=== PATIENT | female | born 2000 | race African-American/Black ===

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

== ENCOUNTER 2019-06-08 11:03 | Inpatient (IN) | payer MEDICAID, OTHER ==
[~2019-06-08] VITALS: Ht 154.9 cm; Wt 57.8 kg
[2019-06-08] MEDS ORDERED: SODIUM CHLORIDE 0.9% 1,000 ML IV ONE (11:12)
[2019-06-08] MEDS ORDERED: ONDANSETRON HCL 4 MG/2 ML VIAL IV ONE (11:15)
[2019-06-08] MEDS ORDERED: InsuLIN R (HUMAN) 100 UNITS in SODIUM CHL 0.9% 99 ML IV SCH ×3 (11:48→16:50)
[2019-06-08] MEDS ORDERED: DEXTROSE (50%) 50ML SYRG IV PRN ×3 (12:00→23:15)
[2019-06-08 12:17] LABS: Urine Bacteria FEW /hpf (None Seen); Urine Blood Negative /uL (Negative); Urine Budding Yeast LOADED /hpf (None Seen); Urine Mucus FEW (None Seen); Urine WBC 51 /hpf (0 - 5)
[2019-06-08] MEDS: ACCU-CHEK COMFORT CURVE STRIP VI SCH ×8 (12:25→22:48)
[2019-06-08] MEDS: SODIUM CHLORIDE 0.9% 1,000 ML IV SCH ×5 (13:48→22:56)
[2019-06-08] MEDS ORDERED: PROMETHAZINE HCL 25 MG/ML 1ML IV ONE (14:00)
[2019-06-08] MEDS ORDERED: MORPHINE SULFATE 4 MG/ML SYR/VIAL IV ONE (14:00)
[2019-06-08 14:31] LABS: Hemoglobin 11.1 g/dL (12.2-16.2); Mean Corpuscular Volume 89.9 fL (80.0-100.0); Platelet Count (auto) 378 10^3/uL (140-450); Red Blood Cells 4.12 10^6/uL (4.0-5.20); Red Cell Distribution Width 16.1 % (11.8-14.3); White Blood Cell 14.2 10^3/uL (4.4-10.8)
[2019-06-08 14:39] LABS: Albumin 3.8 g/dL (3.4-5.0); Calcium 8.6 mg/dL (8.5-10.1); Potassium 4.3 mmol/L (3.5-5.1)
[2019-06-08 14:43] LABS: Magnesium 2.4 mg/dL (1.6-2.6)
[2019-06-08 14:48] LABS: Bilirubin, Total 0.5 mg/dL (0.2-1.0); Total Protein 8.2 g/dL (6.4-8.2)
[2019-06-08 14:53] LABS: Band Neutrophils % (manual) 0; Basophils % (manual) 0 (0.0-2.0); Blast Cells 0; Eosinophils % (manual) 0 (0-7); Metamyelocytes % 0; Myelocytes % 0; Promyelocytes % 0; Reactive Lymphocytes 0
[2019-06-08] MEDS ORDERED: PIPERACILLIN-TAZOB 3.375GM 100 ML IV ONE (15:00)
[2019-06-08 15:28] LABS: Lymphocytes % (manual) 3 (10.0-50.0); Monocytes % (manual) 3 (0-12)
[2019-06-08] MEDS ORDERED: SODIUM CHLORIDE 0.9% 2,000 ML IV ONE (15:30)
[2019-06-08] MEDS ORDERED: SODIUM BICARBONATE 8.4 % INJ 50ML VIAL IV ONE (15:30)
[2019-06-08] MEDS ORDERED: SODIUM CHLORIDE 0.9% 1,000 ML IV SCH ×3 (15:48→20:56)
[2019-06-08] MEDS ORDERED: cefTRIAXone 1GM/50ML D5W 50 ML IV ONE (17:00)
[2019-06-08] MEDS ORDERED: ACETAMINOPHEN 500 MG TAB PO PRN (17:00)
[2019-06-08] MEDS ORDERED: MORPHINE SULF INJ 2 MG/ML SYRINGE 1ML IV PRN (17:00)
[2019-06-08] MEDS ORDERED: NITROGLYCERIN 0.4 MG SL TAB SL PRN (17:00)
[2019-06-08] MEDS: InsuLIN R (HUMAN) 100 UNITS in SODIUM CHL 0.9% 99 ML IV SCH ×2 (17:00→21:19)
[2019-06-08] MEDS: traMADol HCL 50 MG TAB PO PRN (19:38)
[2019-06-08] MEDS ORDERED: INSULIN LANTUS (GLARGINE) 1 /0.01ml (100units/ml) SC SCH (22:00)
[2019-06-08] MEDS: PROMETHAZINE HCL 25 MG/ML 1ML IV PRN (22:55)
[2019-06-08 22:58] LABS: BUN/Creatinine Ratio 13.5; Calcium 6.9 mg/dL (8.5-10.1); Potassium 3.5 mmol/L (3.5-5.1)
[2019-06-09] MEDS: ACCU-CHEK COMFORT CURVE STRIP VI SCH ×5 (00:32→20:11)
[2019-06-09] MEDS: InsuLIN REG 1unit/0.01ml Soln (100units/ml) SC SCH ×6 (00:32→20:23)
[2019-06-09] MEDS: SODIUM CHLORIDE 0.9% 1,000 ML IV SCH (05:27)
[2019-06-09] MEDS ORDERED: INSULIN LANTUS (GLARGINE) 1 /0.01ml (100units/ml) SC SCH (07:00)
[2019-06-09 07:02] LABS: Basophils # (auto) 0.1 uL; Basophils % (auto) 1.1 % (0.0-2.0); Eosinophils # (auto) 0 uL; Eosinophils % (auto) 0.4 % (0.0-7.0); Hematocrit 27.5 % (36.0-46.0); Hemoglobin 9.1 g/dL (12.2-16.2); Lymphocytes # (auto) 2.2 uL; Lymphocytes % (auto) 27.5 % (10.0-50.0); Mean Corpuscular Hemoglobin 27.1 pg (28.0-32.0); Mean Corpuscular Hgb Conc. 33.1 g/dL (32.0-36.0); Mean Corpuscular Volume 81.9 fL (80.0-100.0); Monocytes # (auto) 0.8 uL; Monocytes % (auto) 9.7 % (0.0-12.0); Neutrophils # (auto) 4.9 uL; Neutrophils % (auto) 61.3 % (37.0-80.0); Nucleated Red Blood Cells % 0.1 %; Platelet Count (auto) 313 10^3/uL (140-450); Red Blood Cells 3.35 10^6/uL (4.0-5.20); Red Cell Distribution Width 15.4 % (11.8-14.3)
[2019-06-09 07:21] LABS: Albumin 2.5 g/dL (3.4-5.0); Calcium 6.5 mg/dL (8.5-10.1)
[2019-06-09 07:26] LABS: BUN/Creatinine Ratio 10.3; Bilirubin, Total 0.4 mg/dL (0.2-1.0); Total Protein 5.7 g/dL (6.4-8.2)
[2019-06-09] MEDS ORDERED: POTASSIUM EFFERVESENT TAB 25 MEQ PO ONE ×2 (09:45)
[2019-06-09] MEDS ORDERED: POTASSIUM CHL 20MEQ/100ML 100 ML IV ONE (09:45)
[2019-06-09] MEDS: D5W/SOD CHL 0.45%/KCL 40MEQ 1,000 ML IV SCH ×2 (10:30→19:45)
[2019-06-09] MEDS: cefTRIAXone 1GM/50ML D5W 50 ML IV SCH (11:31)
[2019-06-09] MEDS: PANTOPRAZOLE 40 MG TAB PO SCH (11:34)
[2019-06-09 13:00] VITALS: BP 118/89
[2019-06-09] MEDS: traMADol HCL 50 MG TAB PO PRN (13:34)
[2019-06-09] MEDS: PROMETHAZINE HCL 25 MG/ML 1ML IV PRN (14:08)
[2019-06-09 14:10] LABS: BUN/Creatinine Ratio 5.8; Calcium 6.3 mg/dL (8.5-10.1); Potassium 4.3 mmol/L (3.5-5.1)
[2019-06-09] MEDS ORDERED: GABA300C10 PO (15:08)
[2019-06-09 17:00] VITALS: BP 131/97
[2019-06-09 21:36] VITALS: BP 97/57
[2019-06-09] MEDS: CALCIUM CARB 500 MG CHEW TAB PO SCH (21:45)
[2019-06-09] MEDS: INSULIN LANTUS (GLARGINE) 1 /0.01ml (100units/ml) SC SCH (22:00)
[2019-06-10] MEDS: InsuLIN REG 1unit/0.01ml Soln (100units/ml) SC SCH ×5 (00:29→17:10)
[2019-06-10] MEDS: ACCU-CHEK COMFORT CURVE STRIP VI SCH ×5 (00:29→16:54)
[2019-06-10] MEDS: D5W/SOD CHL 0.45%/KCL 40MEQ 1,000 ML IV SCH ×2 (04:26→15:38)
[2019-06-10 04:50] VITALS: BP 90/52
[2019-06-10] MEDS ORDERED: DEXTROSE (50%) 50ML SYRG IV PRN (06:30)
[2019-06-10] MEDS: INSULIN LANTUS (GLARGINE) 1 /0.01ml (100units/ml) SC SCH (06:45)
[2019-06-10 08:00] VITALS: BP 102/75
[2019-06-10] MEDS: cefTRIAXone 1GM/50ML D5W 50 ML IV SCH (09:25)
[2019-06-10] MEDS: CALCIUM CARB 500 MG CHEW TAB PO SCH (09:26)
[2019-06-10] MEDS: PANTOPRAZOLE 40 MG TAB PO SCH (09:26)
[2019-06-10 12:00] VITALS: BP 118/93
[2019-06-10 12:32] LABS: Basophils # (auto) 0 uL; Basophils % (auto) 1.3 % (0.0-2.0); Eosinophils # (auto) 0 uL; Hematocrit 31.7 % (36.0-46.0); Hemoglobin 10.5 g/dL (12.2-16.2); Lymphocytes # (auto) 1.5 uL; Lymphocytes % (auto) 44.8 % (10.0-50.0); Mean Corpuscular Hemoglobin 27.2 pg (28.0-32.0); Mean Corpuscular Volume 82.3 fL (80.0-100.0); Monocytes # (auto) 0.3 uL; Neutrophils # (auto) 1.5 uL; Neutrophils % (auto) 43.9 % (37.0-80.0); Nucleated Red Blood Cells % 0.1 %; Platelet Count (auto) 327 10^3/uL (140-450); Red Blood Cells 3.85 10^6/uL (4.0-5.20); Red Cell Distribution Width 15.9 % (11.8-14.3); White Blood Cell 3.3 10^3/uL (4.4-10.8)
[2019-06-10 12:43] LABS: BUN/Creatinine Ratio 3.7; Calcium 8.4 mg/dL (8.5-10.1); Potassium 4.7 mmol/L (3.5-5.1)
[2019-06-10] MEDS: traMADol HCL 50 MG TAB PO PRN (15:47)
[2019-06-10 16:50] VITALS: BP 156/105
[2019-06-10 18:10] VITALS: BP 118/80
[2019-06-10] MEDS ORDERED: InsuLIN REG 1unit/0.01ml Soln (100units/ml) SC SCH (22:00)
== END 2019-06-10 19:19 | disposition home or self-care (01) | DRG 720 ==
LOC: ER 11:03 → TELE 11:04 → TELE-WESTW 06-09 14:14
PROVIDERS: ADMIT Internal Medicine; ATTEND Internal Medicine
PROC: 05H933Z Insertion of Infusion Device into Right Brachial Vein, Percutaneous Approach (ICD-10-PCS; principal; 2019-06-08)
PROC: B34HZZZ Ultrasonography of Right Upper Extremity Arteries (ICD-10-PCS; 2019-06-08)
DX: A41.9 Sepsis, unspecified organism (principal); E10.10 Type 1 diabetes mellitus with ketoacidosis without coma; E87.6 Hypokalemia; N39.0 Urinary tract infection, site not specified; Z82.49 Family history of ischemic heart disease and other diseases of the circulatory system; Z79.4 Long term (current) use of insulin; Z91.19 Patient's noncompliance with other medical treatment and regimen
CPT/HCPCS: 36415; 36600; 71045; 80048; 80053; 81001; 82010; 82150; 82805; 82962; 83036; 83605; 83690; 83735; 83930; 84100; 85007; 85025; 85027; 87040; 87086; 96365; 96366; 96368; 96375; G0378; J0696; J1815; J2405; J2543

== ENCOUNTER 2020-02-06 18:13 | Inpatient (IN) | payer MEDICAID ==
[~2020-02-06] VITALS: Ht 154.9 cm; Wt 54.4 kg
[~2020-02-06 18:13] MED LIST changes: +GABA300C10 PO
[2020-02-06 19:54] LABS: Basophils # (auto) 0 10 ^3/uL (0-0.2); Basophils % (auto) 0.4 % (0.0-2.0); Eosinophils # (auto) 0.1 10 ^3/uL (0-0.8); Eosinophils % (auto) 0.7 % (0.0-7.0); Hematocrit 27.9 % (36.0-46.0); Hemoglobin 8.9 g/dL (12.2-16.2); Lymphocytes # (auto) 1.2 10 ^3/uL (0.4-5.4); Lymphocytes % (auto) 10.2 % (10.0-50.0); Mean Corpuscular Hemoglobin 25.8 pg (28.0-32.0); Mean Corpuscular Volume 80.6 fL (80.0-100.0); Monocytes # (auto) 0.9 10 ^3/uL (0-1.3); Monocytes % (auto) 7.3 % (0.0-12.0); Neutrophils # (auto) 9.9 10 ^3/uL (1.6-8.6); Neutrophils % (auto) 81.4 % (37.0-80.0); Platelet Count (auto) 690 10^3/uL (140-450); Red Blood Cells 3.46 10^6/uL (4.0-5.20); Red Cell Distribution Width 19.8 % (11.8-14.3); White Blood Cell 12.2 10^3/uL (4.4-10.8)
[2020-02-06 20:08] LABS: Potassium 3.8 mmol/L (3.5-5.1)
[2020-02-06 20:11] LABS: Amylase 72 U/L (25-115); Lipase 37 U/L (73-393)
[2020-02-06 20:14] LABS: Albumin 3.3 g/dL (3.4-5.0); BUN/Creatinine Ratio 12.9; Bilirubin, Total 0.5 mg/dL (0.2-1.0); Calcium 10.1 mg/dL (8.5-10.1); Total Protein 10.3 g/dL (6.4-8.2)
[2020-02-06] MEDS ORDERED: SODIUM CHLORIDE 0.9% 1,000 ML IV ONE ×2 (20:15→21:30)
[2020-02-06] MEDS ORDERED: ACETAMINOPHEN 500 MG TAB PO ONE (21:30)
[2020-02-06] MEDS ORDERED: SODIUM BICARBONATE 50ML VIAL 50 ML in SOD CHL 0.45% 1,000 ML IV ONE (21:45)
[2020-02-06] MEDS ORDERED: NITROGLYCERIN 0.4 MG SL TAB SL PRN (22:30)
[2020-02-06] MEDS ORDERED: TEMAZEPAM 15 MG CAP PO PRN (22:30)
[2020-02-06] MEDS ORDERED: MORPHINE SULF INJ 2 MG/ML SYRINGE 1ML IV PRN (22:30)
[2020-02-06] MEDS ORDERED: ONDANSETRON HCL 4 MG/2 ML VIAL IV PRN (22:30)
[2020-02-06] MEDS ORDERED: DEXTROSE (50%) 50ML SYRG IV PRN (22:30)
[2020-02-06] MEDS: ACCU-CHEK COMFORT CURVE STRIP VI SCH (22:39)
[2020-02-06] MEDS: InsuLIN R (HUMAN) 100 UNITS in SODIUM CHL 0.9% 99 ML IV SCH (23:20)
[2020-02-07] MEDS: ACCU-CHEK COMFORT CURVE STRIP VI SCH ×8 (00:02→21:33)
[2020-02-07] MEDS: InsuLIN R (HUMAN) 100 UNITS in SODIUM CHL 0.9% 99 ML IV SCH ×2 (01:32→04:30)
[2020-02-07 02:08] LABS: Anion Gap 17 (5-15); Blood Urea Nitrogen 17 mg/dL (7-18); Calcium 8.5 mg/dL (8.5-10.1); Carbon Dioxide 15 mmol/L (21-32); Chloride 102 mmol/L (98-107); GFR African American 72 mL/min; GFR Non-African American 60 mL/min; Glucose 248 mg/dL (74-106); Potassium 3.8 mmol/L (3.5-5.1); Sodium 134 mmol/L (136-145)
[2020-02-07] MEDS ORDERED: HYDROcodone-ACET 5/325MG TAB PO ONE (02:15)
[2020-02-07] MEDS ORDERED: SODIUM CHLORIDE 0.9% 1,000 ML IV SCH ×2 (02:17→04:17)
[2020-02-07 03:01] LABS: Urine Bacteria MANY /hpf (None Seen); Urine Blood 1+ /uL (Negative); Urine Specific Gravity 1.016 (1.001-1.035); Urine WBC 1125 /hpf (0 - 5); Urine WBC Clumps PRESENT /hpf (None Seen)
[2020-02-07 04:29] VITALS: BP 93/54
[2020-02-07 04:51] VITALS: BP 97/57
[2020-02-07] MEDS ORDERED: cefTRIAXone 1GM/50ML D5W 50 ML IV ONE ×2 (06:00→14:15)
[2020-02-07 07:23] LABS: Basophils # (auto) 0 10 ^3/uL (0-0.2); Eosinophils # (auto) 0.1 10 ^3/uL (0-0.8); Neutrophils # (auto) 6.4 10 ^3/uL (1.6-8.6); White Blood Cell 9.4 10^3/uL (4.4-10.8)
[2020-02-07 07:26] LABS: Basophils % (auto) 0.2 % (0.0-2.0); Eosinophils % (auto) 1.4 % (0.0-7.0); Hematocrit 26.2 % (36.0-46.0); Hemoglobin 8.5 g/dL (12.2-16.2); Lymphocytes # (auto) 1.7 10 ^3/uL (0.4-5.4); Lymphocytes % (auto) 18.4 % (10.0-50.0); Mean Corpuscular Hemoglobin 26.1 pg (28.0-32.0); Mean Corpuscular Hgb Conc. 32.5 g/dL (32.0-36.0); Mean Corpuscular Volume 80.2 fL (80.0-100.0); Monocytes # (auto) 1.1 10 ^3/uL (0-1.3); Monocytes % (auto) 11.7 % (0.0-12.0); Neutrophils % (auto) 68.3 % (37.0-80.0); Platelet Count (auto) 593 10^3/uL (140-450); Red Blood Cells 3.27 10^6/uL (4.0-5.20); Red Cell Distribution Width 19.8 % (11.8-14.3)
[2020-02-07] MEDS ORDERED: MORPHINE SULF INJ 2 MG/ML SYRINGE 1ML IV PRN (07:30)
[2020-02-07 07:37] LABS: BUN/Creatinine Ratio 13.6; Calcium 8.6 mg/dL (8.5-10.1); Potassium 3.5 mmol/L (3.5-5.1)
[2020-02-07] MEDS ORDERED: HYDROcodone-ACET 5/325MG TAB PO PRN (08:15)
[2020-02-07] MEDS ORDERED: FERR27TA2 PO (10:23)
[2020-02-07] MEDS ORDERED: ACYC-161 PO (10:23)
[2020-02-07] MEDS ORDERED: INSU100I33 SC (10:23)
[2020-02-07] MEDS ORDERED: CHOL20007 PO (10:23)
[2020-02-07] MEDS ORDERED: SODIUM CHLORIDE 0.9% 1,000 ML IV ONE (11:45)
[2020-02-07] MEDS: FAMOTIDINE 20 MG TAB PO SCH ×2 (11:54→21:40)
[2020-02-07] MEDS ORDERED: ACCU-CHEK COMFORT CURVE STRIP VI SCH ×2 (12:00→14:00)
[2020-02-07] MEDS ORDERED: DEXTROSE (50%) 50ML SYRG IV PRN ×2 (12:00→12:15)
[2020-02-07 13:00] VITALS: BP 114/71
[2020-02-07] MEDS: InsuLIN REG 1unit/0.01ml Soln (100units/ml) SC SCH ×2 (13:01→16:42)
[2020-02-07] MEDS: HYDROcodone-ACET 5/325MG TAB PO PRN ×2 (13:15→20:12)
[2020-02-07] MEDS ORDERED: ACCU-CHEK COMFORT CURVE STRIP VI ONE (13:15)
[2020-02-07 13:20] LABS: BUN/Creatinine Ratio 11.1; Calcium 8.7 mg/dL (8.5-10.1); Potassium 4.2 mmol/L (3.5-5.1)
[2020-02-07] MEDS ORDERED: INSULIN LISPRO (HUMAN) 100 UNITS/ML ML SC ONE (14:15)
[2020-02-07] MEDS: SODIUM CHLORIDE 0.9% 1,000 ML IV SCH ×2 (16:23→21:13)
[2020-02-07] MEDS: INSULIN LISPRO (HUMAN) 100 UNITS/ML ML SC SCH (16:42)
[2020-02-07] MEDS ORDERED: InsuLIN REG 1unit/0.01ml Soln (100units/ml) SC SCH ×2 (17:00→22:00)
[2020-02-07 17:53] VITALS: BP 114/67
[2020-02-07 21:34] LABS: BUN/Creatinine Ratio 11.7; Calcium 8.8 mg/dL (8.5-10.1); Phosphorus 1.8 mg/dL (2.5-4.90); Potassium 3.7 mmol/L (3.5-5.1)
[2020-02-07 22:00] VITALS: BP 132/89
[2020-02-07] MEDS ORDERED: INSULIN LANTUS (GLARGINE) 1 /0.01ml (100units/ml) SC SCH (22:00)
[2020-02-08] MEDS: ACCU-CHEK COMFORT CURVE STRIP VI SCH ×5 (00:54→15:54)
[2020-02-08] MEDS: SODIUM CHLORIDE 0.9% 1,000 ML IV SCH ×3 (03:57→18:33)
[2020-02-08 05:00] VITALS: BP 110/69
[2020-02-08 05:57] LABS: Basophils # (auto) 0.1 10 ^3/uL (0-0.2); Eosinophils # (auto) 0.1 10 ^3/uL (0-0.8); Mean Corpuscular Volume 81.2 fL (80.0-100.0); Monocytes # (auto) 0.9 10 ^3/uL (0-1.3); Platelet Count (auto) 540 10^3/uL (140-450)
[2020-02-08 06:01] LABS: Eosinophils % (auto) 1.5 % (0.0-7.0); Hematocrit 25.2 % (36.0-46.0); Hemoglobin 8.1 g/dL (12.2-16.2); Lymphocytes # (auto) 1.6 10 ^3/uL (0.4-5.4); Lymphocytes % (auto) 16.2 % (10.0-50.0); Mean Corpuscular Hgb Conc. 32.1 g/dL (32.0-36.0); Monocytes % (auto) 9.5 % (0.0-12.0); Neutrophils % (auto) 71.8 % (37.0-80.0); White Blood Cell 9.8 10^3/uL (4.4-10.8)
[2020-02-08 06:08] LABS: Red Cell Distribution Width 20.2 % (11.8-14.3)
[2020-02-08 06:23] LABS: Albumin 2.2 g/dL (3.4-5.0); Calcium 8.5 mg/dL (8.5-10.1); Magnesium 2.1 mg/dL (1.6-2.6); Potassium 3.9 mmol/L (3.5-5.1)
[2020-02-08 06:27] LABS: BUN/Creatinine Ratio 11.2; Bilirubin, Total 0.3 mg/dL (0.2-1.0); Phosphorus 1.9 mg/dL (2.5-4.90); Total Protein 7.6 g/dL (6.4-8.2)
[2020-02-08] MEDS: InsuLIN REG 1unit/0.01ml Soln (100units/ml) SC SCH ×4 (06:27→15:52)
[2020-02-08] MEDS: INSULIN LISPRO (HUMAN) 100 UNITS/ML ML SC SCH (06:27)
[2020-02-08 09:00] VITALS: BP 104/60
[2020-02-08] MEDS ORDERED: cefTRIAXone 1GM/50ML D5W 50 ML IV SCH (09:00)
[2020-02-08] MEDS ORDERED: INSULIN LISPRO (HUMAN) 100 UNITS/ML ML SC ONE (09:15)
[2020-02-08] MEDS: FAMOTIDINE 20 MG TAB PO SCH (09:17)
[2020-02-08] MEDS: HYDROcodone-ACET 5/325MG TAB PO PRN (12:15)
[2020-02-08 13:00] VITALS: BP 94/60
[2020-02-08 14:29] VITALS: BP 115/72
[2020-02-08 17:00] VITALS: BP 108/67
[2020-02-08 19:31] VITALS: BP 108/67
== END 2020-02-08 20:28 | disposition home or self-care (01) | DRG 720 ==
LOC: ER 18:13 → TELE 18:14 → TELE-WESTW 02-07 09:29
PROVIDERS: ADMIT Nurse Practitioner; ATTEND Internal Medicine
DX: A41.9 Sepsis, unspecified organism (principal); E10.10 Type 1 diabetes mellitus with ketoacidosis without coma; F32.9 Major depressive disorder, single episode, unspecified; G89.4 Chronic pain syndrome; Z91.19 Patient's noncompliance with other medical treatment and regimen; Z82.49 Family history of ischemic heart disease and other diseases of the circulatory system; Z83.3 Family history of diabetes mellitus; N39.0 Urinary tract infection, site not specified
CPT/HCPCS: 36415; 36600; 70450; 72125; 80048; 80053; 81001; 81025; 82010; 82150; 82805; 82962; 83036; 83690; 83735; 83930; 84100; 84443; 84702; 85025; 96361; 96365; 96375; G0378; J0696; J1815

== ENCOUNTER 2020-06-23 11:52 | Inpatient (IN) | payer MEDICAID, OTHER ==
[~2020-06-23] VITALS: Ht 154.9 cm; Wt 52.3 kg
[~2020-06-23 11:52] MED LIST changes: +ACYC-161 PO; +CHOL20007 PO; +FERR27TA2 PO; +INSU100I33 SC
[2020-06-23 12:37] LABS: Urine Bacteria MANY /hpf (None Seen); Urine Blood 3+ /uL (Negative); Urine Budding Yeast OCCASIONAL /hpf (None Seen); Urine Mucus FEW (None Seen); Urine Specific Gravity 1.019 (1.001-1.035); Urine WBC 705 /hpf (0 - 5); Urine WBC Clumps PRESENT /hpf (None Seen)
[2020-06-23 12:44] LABS: Basophils # (auto) 0 10 ^3/uL (0-0.2); Basophils % (auto) 0.8 % (0.0-2.0); Eosinophils # (auto) 0.1 10 ^3/uL (0-0.8); Eosinophils % (auto) 1.9 % (0.0-7.0); Hemoglobin 10.8 g/dL (12.2-16.2); Lymphocytes # (auto) 1.7 10 ^3/uL (0.4-5.4); Nucleated Red Blood Cells % 0.1 %; Red Cell Distribution Width 16.3 % (11.8-14.3)
[2020-06-23 12:46] LABS: Hematocrit 32.8 % (36.0-46.0); Lymphocytes % (auto) 28.5 % (10.0-50.0); Mean Corpuscular Hemoglobin 26.7 pg (28.0-32.0); Mean Corpuscular Hgb Conc. 32.8 g/dL (32.0-36.0); Mean Corpuscular Volume 81.3 fL (80.0-100.0); Monocytes # (auto) 0.5 10 ^3/uL (0-1.3); Monocytes % (auto) 8.1 % (0.0-12.0); Neutrophils # (auto) 3.6 10 ^3/uL (1.6-8.6); Neutrophils % (auto) 60.7 % (37.0-80.0); Red Blood Cells 4.04 10^6/uL (4.0-5.20); White Blood Cell 5.9 10^3/uL (4.4-10.8)
[2020-06-23 13:02] LABS: Albumin 3.3 g/dL (3.4-5.0); Calcium 9.3 mg/dL (8.5-10.1)
[2020-06-23 13:04] LABS: Platelet Count (auto) 632 10^3/uL (140-450)
[2020-06-23 13:11] LABS: BUN/Creatinine Ratio 11.5; Bilirubin, Total 0.3 mg/dL (0.2-1.0); Total Protein 9.7 g/dL (6.4-8.2)
[2020-06-23] MEDS ORDERED: SODIUM CHLORIDE 0.9% 1,000 ML IVB ONE (13:40)
[2020-06-23] MEDS ORDERED: cefTRIAXone 1GM/50ML D5W 50 ML IV ONE (13:45)
[2020-06-23] MEDS ORDERED: ACETAMINOPHEN 325 MG TAB PO PRN (14:45)
[2020-06-23] MEDS ORDERED: DOCUSATE SOD 100 MG CAP PO PRN (14:45)
[2020-06-23] MEDS ORDERED: DEXTROSE (50%) 50ML SYRG IV PRN (14:45)
[2020-06-23] MEDS ORDERED: SODIUM CHLORIDE 0.9% 1,000 ML IV ONE (14:45)
[2020-06-23] MEDS ORDERED: LACTATED RINGER'S 1,000 ML IV ONE (14:45)
[2020-06-23] MEDS ORDERED: LORazepam 0.5 MG TAB PO PRN (14:45)
[2020-06-23] MEDS ORDERED: MORPHINE SULF INJ 2 MG/ML SYRINGE 1ML IV PRN (14:45)
[2020-06-23] MEDS ORDERED: NITROGLYCERIN 0.4 MG SL TAB SL PRN (14:45)
[2020-06-23] MEDS ORDERED: HYDROcodone-ACET 5/325MG TAB PO PRN (14:45)
[2020-06-23] MEDS ORDERED: METOCLOPRAMIDE HCL 5MG/ml INJ 2ml VIAL IV PRN (14:45)
[2020-06-23] MEDS ORDERED: ALUM & MAG HYDROX-SIMETH LIQ(MAALOX) 30 ML PO PRN (14:45)
[2020-06-23] MEDS ORDERED: INSULIN LANTUS (GLARGINE) 1 /0.01ml (100units/ml) SC ONE (14:45)
[2020-06-23 15:21] LABS: Cholesterol 134 mg/dL (< 200); HDL Cholesterol 31 mg/dL (40-59); LDL Cholesterol 81 mg/dL (< 100); Magnesium 2.6 mg/dL (1.6-2.6); Triglycerides 357 mg/dL (< 150)
[2020-06-23 15:28] LABS: Amphetamine Screen, Urine NEGATIVE (NEGATIVE); Barbiturate Scree,Urine NEGATIVE (NEGATIVE); Benzodiazephine Screen, Urine NEGATIVE (NEGATIVE); Cannabinoid Screen, Urine NEGATIVE (NEGATIVE); Cocaine Screen, Urine NEGATIVE (NEGATIVE); Opiate Scree,Urine NEGATIVE (NEGATIVE); Phencyclidine Screen, Urine NEGATIVE (NEGATIVE)
[2020-06-23] MEDS: SODIUM CHLORIDE 0.9% 1,000 ML IV SCH ×2 (15:42→23:13)
[2020-06-23] MEDS: InsuLIN REG 1unit/0.01ml Soln (100units/ml) SC SCH ×2 (17:36→23:12)
[2020-06-23] MEDS: ACCU-CHEK COMFORT CURVE STRIP VI SCH ×2 (17:36→23:12)
[2020-06-23] MEDS: FERROUS SULFATE 325 MG TAB PO SCH (17:40)
[2020-06-23] MEDS ORDERED: FAMOTIDINE 20 MG TAB PO ONE (17:45)
[2020-06-23] MEDS ORDERED: ACYC1CAP23 PO (19:11)
[2020-06-23] MEDS: GABAPENTIN 300 MG CAP PO SCH (21:21)
[2020-06-23] MEDS: MORPHINE SULF INJ 2 MG/ML SYRINGE 1ML IV PRN (21:25)
[2020-06-23] MEDS ORDERED: INSULIN LANTUS (GLARGINE) 1 /0.01ml (100units/ml) SC SCH (22:00)
[2020-06-23 22:01] VITALS: BP 120/80
[2020-06-24] MEDS: MORPHINE SULF INJ 2 MG/ML SYRINGE 1ML IV PRN ×5 (01:32→19:38)
[2020-06-24] MEDS ORDERED: DEXTROSE (50%) 50ML SYRG IV PRN (03:15)
[2020-06-24] MEDS: ACCU-CHEK COMFORT CURVE STRIP VI SCH ×5 (04:21→20:09)
[2020-06-24] MEDS: InsuLIN REG 1unit/0.01ml Soln (100units/ml) SC SCH ×5 (04:29→20:11)
[2020-06-24 05:00] VITALS: BP 92/80
[2020-06-24] MEDS: GABAPENTIN 300 MG CAP PO SCH ×4 (05:39→21:54)
[2020-06-24 05:42] VITALS: BP 115/81
[2020-06-24 08:00] VITALS: BP 132/94
[2020-06-24] MEDS: FERROUS SULFATE 325 MG TAB PO SCH ×3 (08:19→18:43)
[2020-06-24] MEDS ORDERED: cefTRIAXone 1GM/50ML D5W 50 ML IV SCH (09:00)
[2020-06-24] MEDS: ENOXAPARIN SOD 40 MG/0.4 ML SYRINGE SC SCH (09:49)
[2020-06-24] MEDS ORDERED: FAMOTIDINE 20 MG TAB PO SCH (10:00)
[2020-06-24] MEDS: SODIUM CHLORIDE 0.9% 1,000 ML IV SCH ×2 (11:48→20:45)
[2020-06-24 12:50] VITALS: BP 144/104
[2020-06-24 17:00] VITALS: BP 136/90
[2020-06-24 22:00] VITALS: BP 113/69
[2020-06-25] MEDS: InsuLIN REG 1unit/0.01ml Soln (100units/ml) SC SCH ×4 (04:00→11:37)
[2020-06-25] MEDS: ACCU-CHEK COMFORT CURVE STRIP VI SCH ×4 (04:00→11:37)
[2020-06-25] MEDS: MORPHINE SULF INJ 2 MG/ML SYRINGE 1ML IV PRN (04:51)
[2020-06-25 05:00] VITALS: BP 108/68
[2020-06-25] MEDS: GABAPENTIN 300 MG CAP PO SCH ×2 (06:00→13:38)
[2020-06-25 06:24] LABS: Basophils # (auto) 0.1 10 ^3/uL (0-0.2); Basophils % (auto) 0.8 % (0.0-2.0); Eosinophils # (auto) 0.2 10 ^3/uL (0-0.8); Eosinophils % (auto) 2.5 % (0.0-7.0); Hematocrit 26.3 % (36.0-46.0); Hemoglobin 8.7 g/dL (12.2-16.2); Lymphocytes % (auto) 28.6 % (10.0-50.0); Mean Corpuscular Hemoglobin 26.8 pg (28.0-32.0); Mean Corpuscular Volume 81.1 fL (80.0-100.0); Monocytes # (auto) 0.5 10 ^3/uL (0-1.3); Monocytes % (auto) 7.3 % (0.0-12.0); Neutrophils # (auto) 4.3 10 ^3/uL (1.6-8.6); Neutrophils % (auto) 60.8 % (37.0-80.0); Nucleated Red Blood Cells % 0.2 %; Platelet Count (auto) 550 10^3/uL (140-450); Red Blood Cells 3.24 10^6/uL (4.0-5.20); Red Cell Distribution Width 16.5 % (11.8-14.3); White Blood Cell 7.1 10^3/uL (4.4-10.8)
[2020-06-25 06:37] LABS: BUN/Creatinine Ratio 9.2; Calcium 8.5 mg/dL (8.5-10.1); Potassium 3.8 mmol/L (3.5-5.1)
[2020-06-25 08:00] VITALS: BP 139/98
[2020-06-25] MEDS: FERROUS SULFATE 325 MG TAB PO SCH ×2 (08:43→13:38)
[2020-06-25 09:00] VITALS: BP 138/94
[2020-06-25] MEDS ORDERED: INSULIN LANTUS (GLARGINE) 1 /0.01ml (100units/ml) SC SCH (10:00)
[2020-06-25] MEDS: ENOXAPARIN SOD 40 MG/0.4 ML SYRINGE SC SCH (10:00)
[2020-06-25] MEDS ORDERED: FAMOTIDINE 20 MG TAB PO SCH (10:43)
[2020-06-25] MEDS ORDERED: CEPH-37 PO (12:17)
[2020-06-25 13:00] VITALS: BP 145/100
== END 2020-06-25 18:10 | disposition home or self-care (01) | DRG 420 ==
LOC: ER 11:52 → TELE 11:53 → TELE-WESTW 20:52
PROVIDERS: ADMIT Hospitalist; ATTEND Internal Medicine Pulmonary Disease
DX: E10.65 Type 1 diabetes mellitus with hyperglycemia (principal); N39.0 Urinary tract infection, site not specified; F41.9 Anxiety disorder, unspecified; M54.9 Dorsalgia, unspecified; F32.9 Major depressive disorder, single episode, unspecified; E87.1 Hypo-osmolality and hyponatremia; E10.40 Type 1 diabetes mellitus with diabetic neuropathy, unspecified; B96.20 Unspecified Escherichia coli [E. coli] as the cause of diseases classified elsewhere; E10.649 Type 1 diabetes mellitus with hypoglycemia without coma; E78.5 Hyperlipidemia, unspecified; Z82.49 Family history of ischemic heart disease and other diseases of the circulatory system; Z83.3 Family history of diabetes mellitus; Z96.41 Presence of insulin pump (external) (internal); Z79.899 Other long term (current) drug therapy
CPT/HCPCS: 36415; 80048; 80053; 80061; 80307; 81001; 81025; 82962; 83036; 83690; 83735; 83930; 84484; 85025; 87040; 87086; 87088; 87186; G0378; J0696; J1815

== ENCOUNTER 2020-09-01 05:13 | Inpatient (IN) | payer MEDICAID ==
[~2020-09-01] VITALS: Ht 154.9 cm; Wt 53.9 kg
[~2020-09-01 05:13] MED LIST changes: -ACYC-161 PO; +CEPH-37 PO; -CHOL20007 PO; -FERR27TA2 PO; -GABA300C10 PO; -INSU100I33 SC; -SERT-274 PO
[2020-09-01] MEDS ORDERED: SODIUM CHLORIDE 0.9% 2,000 ML IV ONE (05:30)
[2020-09-01] MEDS ORDERED: InsuLIN REG 1unit/0.01ml Soln (100units/ml) IV ONE (05:30)
[2020-09-01] MEDS ORDERED: SODIUM CHLORIDE 0.9% 1,000 ML IV ONE ×2 (07:15)
[2020-09-01 07:40] LABS: Urine Bacteria FEW /hpf (None Seen); Urine Blood 2+ /uL (Negative); Urine Hyaline Cast FEW /lpf (0 - 2); Urine Specific Gravity 1.017 (1.001-1.035); Urine WBC 54 /hpf (0 - 5)
[2020-09-01] MEDS ORDERED: ONDANSETRON HCL 4 MG/2 ML VIAL IV ONE (08:00)
[2020-09-01] MEDS ORDERED: MORPHINE SULFATE 4 MG/ML SYR/VIAL IV ONE (08:00)
[2020-09-01 08:21] LABS: Potassium 3.5 mmol/L (3.5-5.1)
[2020-09-01 08:28] LABS: Basophils # (auto) 0 10 ^3/uL (0-0.2); Basophils % (auto) 0.3 % (0.0-2.0); Eosinophils # (auto) 0 10 ^3/uL (0-0.8); Hematocrit 31.1 % (36.0-46.0); Hemoglobin 10.4 g/dL (12.2-16.2); Lymphocytes # (auto) 1.3 10 ^3/uL (0.4-5.4); Lymphocytes % (auto) 9.8 % (10.0-50.0); Mean Corpuscular Hemoglobin 28.7 pg (28.0-32.0); Mean Corpuscular Hgb Conc. 33.4 g/dL (32.0-36.0); Monocytes # (auto) 0.6 10 ^3/uL (0-1.3); Monocytes % (auto) 4.4 % (0.0-12.0); Neutrophils # (auto) 11.1 10 ^3/uL (1.6-8.6); Neutrophils % (auto) 85.5 % (37.0-80.0); Platelet Count (auto) 388 10^3/uL (140-450); Red Blood Cells 3.61 10^6/uL (4.0-5.20); Red Cell Distribution Width 14.4 % (11.8-14.3)
[2020-09-01 08:33] LABS: Albumin 3.9 g/dL (3.4-5.0); BUN/Creatinine Ratio 15.3; Bilirubin, Total 0.6 mg/dL (0.2-1.0); Calcium 9.4 mg/dL (8.5-10.1); Total Protein 8.9 g/dL (6.4-8.2)
[2020-09-01] MEDS ORDERED: INSULIN LANTUS (GLARGINE) 1 /0.01ml (100units/ml) SC ONE (09:30)
[2020-09-01] MEDS ORDERED: DEXTROSE (50%) 50ML SYRG IV PRN ×3 (09:30→20:00)
[2020-09-01] MEDS ORDERED: InsuLIN R (HUMAN) 100 UNITS in SODIUM CHL 0.9% 99 ML IV SCH ×2 (09:30→11:15)
[2020-09-01] MEDS: SODIUM CHLORIDE 0.9% 1,000 ML IV SCH ×2 (09:49→11:30)
[2020-09-01] MEDS: ACCU-CHEK COMFORT CURVE STRIP VI SCH ×7 (10:05→20:01)
[2020-09-01] MEDS ORDERED: ACETAMINOPHEN 500 MG TAB PO PRN (11:15)
[2020-09-01] MEDS: cefTRIAXone 1GM/50ML D5W 50 ML IV SCH (11:28)
[2020-09-01] MEDS: ONDANSETRON HCL 4 MG/2 ML VIAL IV PRN ×3 (11:38→21:24)
[2020-09-01] MEDS: MORPHINE SULF INJ 2 MG/ML SYRINGE 1ML IV PRN ×3 (11:39→19:37)
[2020-09-01] MEDS ORDERED: BIOT5TAB3 PO (11:57)
[2020-09-01] MEDS ORDERED: OMEG306C OR (11:57)
[2020-09-01] MEDS ORDERED: FERR-7 PO (12:01)
[2020-09-01] MEDS ORDERED: LISI-275 PO (12:01)
[2020-09-01 13:11] LABS: Magnesium 3.2 mg/dL (1.6-2.6); Phosphorus 4.3 mg/dL (2.5-4.90)
[2020-09-01] MEDS ORDERED: SODIUM CHLORIDE 0.9% 1,000 ML IV SCH ×3 (13:30→17:15)
[2020-09-01] MEDS ORDERED: D5W/SOD CHL 0.45% 1,000 ML IV SCH (17:00)
[2020-09-01] MEDS ORDERED: MORPHINE SULF INJ 2 MG/ML SYRINGE 1ML IV ONE (17:15)
[2020-09-01] MEDS ORDERED: PROMETHAZINE HCL 25 MG/ML 1ML IV ONE ×2 (17:30→23:30)
[2020-09-01 19:15] LABS: Calcium 7.5 mg/dL (8.5-10.1); Potassium 3.2 mmol/L (3.5-5.1)
[2020-09-01 19:16] LABS: BUN/Creatinine Ratio 12.8
[2020-09-01] MEDS: InsuLIN REG 1unit/0.01ml Soln (100units/ml) SC SCH (20:00)
[2020-09-01] MEDS: SOD CHL 0.45% WITH 20MEQ KCL 1,000 ML IV SCH (21:47)
[2020-09-02] VITALS (9 sets, daily range): BP systolic 117–173; BP diastolic 71–115
--- NOTE | 2020-09-02 00:07 | NUR ---
Report Received from Nidia ALVAREZ in ER.
--- NOTE | 2020-09-02 00:20 | NUR ---
Patient Brought to Unit Via Bed from ER Patient is AOx4 and presenting with nausea and weakness upon admit to Tele. Patient has no s/s of acute distress or SOB. Tele Box #34 and sinus tach at 104-110. POC discussed with patient and patient agreed to verbally understanding. Patient bed locked in lowest position and HOB is at 45 degrees. Patient told to use call light PRN and told to call if ambulation to bathroom is needed for safety precautions due to weakness and fatigue. Blood glucose was checked and is currently 91. Will continue to monitor.
[2020-09-02] MEDS: ACCU-CHEK COMFORT CURVE STRIP VI SCH ×5 (00:30→17:57)
[2020-09-02] MEDS: InsuLIN REG 1unit/0.01ml Soln (100units/ml) SC SCH ×5 (00:30→17:56)
[2020-09-02] MEDS: MORPHINE SULF INJ 2 MG/ML SYRINGE 1ML IV PRN ×4 (02:01→22:07)
--- NOTE | 2020-09-02 02:06 | NUR ---
Pain Patient complains of pain and nausea. Patient anti-nausea medication not due. Patient request pain medication and has been given pain medication PRN as ordered. Will continue to monitor.
[2020-09-02] MEDS: ONDANSETRON HCL 4 MG/2 ML VIAL IV PRN (03:50)
[2020-09-02] MEDS: SOD CHL 0.45% WITH 20MEQ KCL 1,000 ML IV SCH ×2 (05:35→17:56)
[2020-09-02 06:54] LABS: Basophils # (auto) 0 10 ^3/uL (0-0.2); Basophils % (auto) 0.3 % (0.0-2.0); Eosinophils # (auto) 0 10 ^3/uL (0-0.8); Eosinophils % (auto) 0.1 % (0.0-7.0); Hematocrit 28.1 % (36.0-46.0); Hemoglobin 9.5 g/dL (12.2-16.2); Lymphocytes # (auto) 1.3 10 ^3/uL (0.4-5.4); Lymphocytes % (auto) 12.3 % (10.0-50.0); Mean Corpuscular Hemoglobin 28.9 pg (28.0-32.0); Mean Corpuscular Volume 85.1 fL (80.0-100.0); Monocytes # (auto) 0.6 10 ^3/uL (0-1.3); Monocytes % (auto) 5.4 % (0.0-12.0); Neutrophils # (auto) 8.5 10 ^3/uL (1.6-8.6); Neutrophils % (auto) 81.9 % (37.0-80.0); Platelet Count (auto) 330 10^3/uL (140-450); Red Cell Distribution Width 14.8 % (11.8-14.3); White Blood Cell 10.4 10^3/uL (4.4-10.8)
[2020-09-02 07:13] LABS: Albumin 3.4 g/dL (3.4-5.0); Calcium 8.6 mg/dL (8.5-10.1); Magnesium 2.6 mg/dL (1.6-2.6); Potassium 3.3 mmol/L (3.5-5.1)
[2020-09-02 07:17] LABS: BUN/Creatinine Ratio 10.4; Bilirubin, Total 0.4 mg/dL (0.2-1.0); Phosphorus 1.5 mg/dL (2.5-4.90); Total Protein 7.7 g/dL (6.4-8.2)
--- NOTE | 2020-09-02 07:30 | NUR ---
Opening Shift Note Assumed care of patient, upon entering the room found patient to be resting with eyes closed. Respirations even and unlabored. No S/S of distress/SOB or pain. Will instruct patient on plan of care. Bed is low and locked with two side rails up. Call light is within reach. Will continue to monitor for changes Q1hr and PRN.
[2020-09-02] MEDS ORDERED: POTASSIUM PHOSPHATE 22 MEQ in SODIUM CHL 0.9% 100 ML IV ONE (08:45)
[2020-09-02] MEDS: PANTOPRAZOLE 40 MG/10 ML VIAL INJ IV SCH (08:59)
[2020-09-02] MEDS: cefTRIAXone 1GM/50ML D5W 50 ML IV SCH (08:59)
[2020-09-02] MEDS: LISINOPRIL 5 MG TAB PO SCH (09:01)
[2020-09-02] MEDS: INSULIN LANTUS (GLARGINE) 1 /0.01ml (100units/ml) SC SCH ×2 (09:01→10:36)
[2020-09-02] MEDS: PROMETHAZINE HCL 25 MG/ML 1ML IV PRN ×3 (09:41→17:57)
[2020-09-02] MEDS ORDERED: INSULIN LANTUS (GLARGINE) 1 /0.01ml (100units/ml) SC SCH (10:00)
--- NOTE | 2020-09-02 10:20 | NUR ---
DR. ROGEL ROUNDING Dr. Rogel at bedside discussing plan of care with patient. MD aware of latest blood sugar of 103. Per MD give Lantus as ordered or patient will go back into DKA. Will carry out orders.
[2020-09-02] MEDS ORDERED: DEXTROSE (50%) 50ML SYRG IV PRN (10:30)
--- NOTE | 2020-09-02 12:35 | NUR ---
BP/N/V Patient's blood pressure: 173/110 mmHg HR: 107bpm. Upon reassessment BP: 177/108 mmHg, HR: 119. Paged and spoke to Dr. Houston regarding patient's blood pressure. Patient also nauseated and vomiting. New orders received. Orders read back to verify. (SEE ORDERS).
[2020-09-02] MEDS ORDERED: METOCLOPRAMIDE HCL 5MG/ml INJ 2ml VIAL IV ONE (12:45)
--- NOTE | 2020-09-02 19:55 | NUR ---
Opening Shift Note Assumed care of patient, awake and alert. No S/S of distress/SOB noted. Instructed on POC and to call for assist PRN. Bed is in lowest locked position with bedrails up x2 and call light is within reach.
[2020-09-03] VITALS (7 sets, daily range): BP systolic 120–157; BP diastolic 87–111
[2020-09-03] MEDS: SOD CHL 0.45% WITH 20MEQ KCL 1,000 ML IV SCH ×3 (04:06→23:49)
[2020-09-03] MEDS: MORPHINE SULF INJ 2 MG/ML SYRINGE 1ML IV PRN ×5 (04:06→23:50)
[2020-09-03] MEDS: InsuLIN REG 1unit/0.01ml Soln (100units/ml) SC SCH ×5 (05:37→23:58)
[2020-09-03] MEDS: ACCU-CHEK COMFORT CURVE STRIP VI SCH ×5 (05:37→23:49)
--- NOTE | 2020-09-03 05:40 | NUR ---
low blood sugar: Patients blood sugar was 60 and asymptomatic. Patient provided with orange juice to help raise blood sugar. Will reassess.
[2020-09-03 06:03] LABS: Basophils # (auto) 0 10 ^3/uL (0-0.2); Basophils % (auto) 0.7 % (0.0-2.0); Eosinophils # (auto) 0.1 10 ^3/uL (0-0.8); Eosinophils % (auto) 1.6 % (0.0-7.0); Hematocrit 25.3 % (36.0-46.0); Hemoglobin 8.6 g/dL (12.2-16.2); Lymphocytes # (auto) 2.5 10 ^3/uL (0.4-5.4); Lymphocytes % (auto) 47.9 % (10.0-50.0); Mean Corpuscular Hemoglobin 28.9 pg (28.0-32.0); Mean Corpuscular Hgb Conc. 33.9 g/dL (32.0-36.0); Mean Corpuscular Volume 85.5 fL (80.0-100.0); Monocytes # (auto) 0.4 10 ^3/uL (0-1.3); Monocytes % (auto) 8.2 % (0.0-12.0); Neutrophils # (auto) 2.2 10 ^3/uL (1.6-8.6); Neutrophils % (auto) 41.6 % (37.0-80.0); Nucleated Red Blood Cells % 0.2 %; Platelet Count (auto) 263 10^3/uL (140-450); Red Blood Cells 2.96 10^6/uL (4.0-5.20); White Blood Cell 5.2 10^3/uL (4.4-10.8)
[2020-09-03 06:22] LABS: BUN/Creatinine Ratio 7.7
[2020-09-03 06:24] LABS: Potassium 2.7 mmol/L (3.5-5.1)
--- NOTE | 2020-09-03 06:24 | NUR ---
Critical lab, hospitalist paged: Received critical potassium value of 2.7 at this time. Hospitalist paged to notify of lab value. Waiting for call back.
[2020-09-03] MEDS ORDERED: POTASSIUM CHL 20 Meq TABLET PO ONE (06:45)
--- NOTE | 2020-09-03 06:46 | NUR ---
Hospitalist called back: Hospitalist bob called back and notified about critical potassium level. New orders received. To place and carry out orders.
--- NOTE | 2020-09-03 07:45 | NUR ---
OPENING SHIFT NOTE Upon entering room patient was resting with eyes closed. No signs of distress noted. Respirations even and unlabored. Bed in low position and locked with two side rails up. Will continue to monitor for changes.
[2020-09-03] MEDS: PANTOPRAZOLE 40 MG/10 ML VIAL INJ IV SCH (08:49)
[2020-09-03] MEDS: cefTRIAXone 1GM/50ML D5W 50 ML IV SCH (08:49)
[2020-09-03] MEDS: LISINOPRIL 5 MG TAB PO SCH ×2 (08:50→12:50)
[2020-09-03] MEDS: PROMETHAZINE HCL 25 MG/ML 1ML IV PRN (08:52)
[2020-09-03] MEDS: INSULIN LANTUS (GLARGINE) 1 /0.01ml (100units/ml) SC SCH (09:19)
--- NOTE | 2020-09-03 10:00 | NUR ---
DR. ROGEL ROUNDING Dr. Rogel at bedside discussing plan of care with patient. MD aware of potassium 2.7, noc RN administered 40 meq KCL PO per MD order. Dr. Rogel inputting potassium IV for additional coverage. Possible discharge tomorrow.
[2020-09-03] MEDS: POTASSIUM CHL 20MEQ/100ML 100 ML IV SCH ×2 (10:27→12:51)
--- NOTE | 2020-09-03 12:18 | NUR ---
Nutrition Assessment Note: please see attached link for complete assessment Est energy needs BW 55 [id number] kcal (25-30 kcal BW), Est protein needs: 55-66 g (1-1.2 g/kg BW). Will reassess prn Addendum: 09/03/20 at [address] Amended: Links added.
[2020-09-04 04:54] VITALS: BP 99/67
[2020-09-04] MEDS: ACCU-CHEK COMFORT CURVE STRIP VI SCH ×2 (06:27→11:30)
[2020-09-04] MEDS: InsuLIN REG 1unit/0.01ml Soln (100units/ml) SC SCH ×2 (06:29→13:22)
[2020-09-04 07:00] LABS: Magnesium 2.1 mg/dL (1.6-2.6); Potassium 3.8 mmol/L (3.5-5.1)
--- NOTE | 2020-09-04 07:30 | NUR ---
Opening Shift Note Assuming care of patient at this time. Patient is awake and alert. Patient complains of pain to back that is approximately 5/10. Will medicate according to doctor's orders. Patient shows no signs or symptoms of distress or shortness of breath. Bed is locked and lowered with side rails up x2. Instructed patient on the plan of care for today and to call for assistance as needed. Call light within reach. Will continue to round hourly and as needed.
[2020-09-04] MEDS: cefTRIAXone 1GM/50ML D5W 50 ML IV SCH (08:50)
[2020-09-04] MEDS: PANTOPRAZOLE 40 MG/10 ML VIAL INJ IV SCH (08:50)
[2020-09-04] MEDS: LISINOPRIL 5 MG TAB PO SCH (08:51)
[2020-09-04] MEDS: INSULIN LANTUS (GLARGINE) 1 /0.01ml (100units/ml) SC SCH (08:53)
[2020-09-04] MEDS: MORPHINE SULF INJ 2 MG/ML SYRINGE 1ML IV PRN ×2 (08:58→13:59)
[2020-09-04 09:00] VITALS: BP 128/100
[2020-09-04 12:01] VITALS: BP 128/100
[2020-09-04] MEDS: SOD CHL 0.45% WITH 20MEQ KCL 1,000 ML IV SCH (12:40)
[2020-09-04 12:55] VITALS: BP 164/120
[2020-09-04] MEDS ORDERED: cloNIDine HCL 0.1 MG TAB PO ONE (14:00)
--- NOTE | 2020-09-04 14:05 | NUR ---
assessment Patient is a 20 year old female who is alert and oriented. Patients cognitive abilities are intact. Prior to admission patient lived home with her boyfriend and functioned independently. Patient informed me she is able to care for her own ADLs. Per patient she will return home to her prior living arrangements post discharge and family will transport her home. Patient has been admitted for diabetic ketoacidosis. Patient has been offered diabetic education and she refused stating she has been a diabetic since age 11 and knows what to do. Patient feels safe returning home on discharge. Patient has no other post discharge needs identified at this time. I informed patient she has a right to speak to a social worker psychiatric regarding all care. I informed patient she has a right to participate in any and all discharge planning. Patient does not have a POA and advanced directive. I have offered patient information on POA and advanced directives. I informed the patient the advantages and benefits of having an Advanced Directive. Patient verbalized understanding and agreed to discharge plan. Addendum: 09/04/20 at 1412 by Latesha MENENDEZ Amended: Links added.
[2020-09-04] MEDS ORDERED: LABETALOL HCL 5 MG/ML 4ML SYRINGE IV ONE (15:30)
--- NOTE | 2020-09-04 15:35 | NUR ---
Tele Patient placed on a tele monitor at this time due to upcoming administration of labetalol. Will administer and monitor heart rate.
[2020-09-04 16:40] VITALS: BP 111/81
--- NOTE | 2020-09-04 16:40 | NUR ---
Reassessed Blood Pressure Reassessed patient's blood pressure at this time. Blood pressure 111/81, pulse of 98. Will discharge according to MD orders.
--- NOTE | 2020-09-04 17:10 | NUR ---
IV removal Right IJ DC'd with sterile technique, catheter fully intact. IV removed from left wrist, catheter full intact. Pressure dressings applied to sites. Patient tolerated procedure well.
--- NOTE | 2020-09-04 17:56 | NUR ---
Discharge Discharge instructions given as ordered. Encourage to follow up with PMD as instructed. Appointment made for discharge clinic. All questions and concerns addressed. Patient verbalized understanding. Medication reconciliation form completed and copy given to patient. IV and Right IJ removed with catheter intact, pressure dressing applied. Telemetry unit returned to ICU. Patient taken to vehicle via wheelchair with all personal belongings, accompanied by staff and family member. No distress noted at time of departure.
[2020-09-05] MEDS ORDERED: PANTOPRAZOLE 40 MG/10 ML VIAL INJ IV SCH (10:00)
[2020-09-05] MEDS ORDERED: PANTOPRAZOLE 40 MG TAB PO SCH (10:00)
== END 2020-09-04 17:55 | disposition home or self-care (01) | DRG 420 ==
LOC: ER 05:13 → TELE 05:14 → TELE-CENTR 23:46 → CENTRAL 09-02 10:41
PROVIDERS: ADMIT Nurse Practitioner Acute Care; ATTEND Internal Medicine
PROC: 02HV33Z Insertion of Infusion Device into Superior Vena Cava, Percutaneous Approach (ICD-10-PCS; principal; 2020-09-01)
DX: E10.10 Type 1 diabetes mellitus with ketoacidosis without coma (principal); N17.0 Acute kidney failure with tubular necrosis; R65.10 Systemic inflammatory response syndrome (SIRS) of non-infectious origin without acute organ dysfunction; N30.00 Acute cystitis without hematuria; E86.0 Dehydration; D64.9 Anemia, unspecified; E10.40 Type 1 diabetes mellitus with diabetic neuropathy, unspecified; F41.9 Anxiety disorder, unspecified; E87.6 Hypokalemia; I10 Essential (primary) hypertension; Z79.4 Long term (current) use of insulin; Z82.49 Family history of ischemic heart disease and other diseases of the circulatory system; Z83.3 Family history of diabetes mellitus; Z79.899 Other long term (current) drug therapy; E87.8 Other disorders of electrolyte and fluid balance, not elsewhere classified
CPT/HCPCS: 36415; 36556; 36600; 71045; 80048; 80053; 81001; 82010; 82805; 82962; 83735; 83930; 84100; 85025; 87086; 96361; 96365; 96375; 99291; C9113; G0378; J0696; J1815; J2405; J3480; J3490

== ENCOUNTER 2020-11-29 15:00 | Inpatient (IN) | payer MEDICAID, OTHER ==
[~2020-11-29] VITALS: Ht 154.9 cm; Wt 21.2 kg
[~2020-11-29 15:00] MED LIST changes: +BIOT5TAB3 PO; -CEPH-37 PO; +FERR-7 PO; +LISI-275 PO; +OMEG306C OR
[2020-11-29 16:21] LABS: Albumin 3.6 g/dL (3.4-5.0); Calcium 9.3 mg/dL (8.5-10.1); Potassium 4.3 mmol/L (3.5-5.1)
[2020-11-29] MEDS ORDERED: MORPHINE SULFATE INJECTION 2 MG/ML SYRG IV ONE (16:30)
[2020-11-29] MEDS ORDERED: ONDANSETRON HCL 4 MG/2 ML VIAL IV ONE (16:30)
[2020-11-29] MEDS ORDERED: SODIUM CHLORIDE 0.9% 1,000 ML IVB ONE (16:30)
[2020-11-29 16:31] LABS: BUN/Creatinine Ratio 15.3; Bilirubin, Total 0.7 mg/dL (0.2-1.0); Total Protein 9.5 g/dL (6.4-8.2)
[2020-11-29 16:35] LABS: Basophils # (auto) 0.1 10 ^3/uL (0-0.2); Basophils % (auto) 1.1 % (0.0-2.0); Eosinophils # (auto) 0.1 10 ^3/uL (0-0.8); Eosinophils % (auto) 1.4 % (0.0-7.0); Hematocrit 28.7 % (36.0-46.0); Hemoglobin 9.8 g/dL (12.2-16.2); Lymphocytes # (auto) 1.7 10 ^3/uL (0.4-5.4); Lymphocytes % (auto) 22.2 % (10.0-50.0); Mean Corpuscular Hemoglobin 28.7 pg (28.0-32.0); Mean Corpuscular Hgb Conc. 34.2 g/dL (32.0-36.0); Mean Corpuscular Volume 83.7 fL (80.0-100.0); Monocytes # (auto) 0.3 10 ^3/uL (0-1.3); Monocytes % (auto) 3.9 % (0.0-12.0); Neutrophils # (auto) 5.4 10 ^3/uL (1.6-8.6); Neutrophils % (auto) 71.4 % (37.0-80.0); Red Blood Cells 3.42 10^6/uL (4.0-5.20); Red Cell Distribution Width 14.9 % (11.8-14.3); White Blood Cell 7.5 10^3/uL (4.4-10.8)
[2020-11-29 16:56] LABS: Magnesium 2.3 mg/dL (1.6-2.6)
[2020-11-29] MEDS ORDERED: NITROGLYCERIN 0.4 MG SL TAB SL PRN (18:15)
[2020-11-29] MEDS ORDERED: INSULIN LANTUS (GLARGINE) 1 /0.01ml (100units/ml) SC ONE (18:15)
[2020-11-29] MEDS ORDERED: MORPHINE SULFATE INJECTION 2 MG/ML SYRG IV PRN (18:15)
[2020-11-29] MEDS ORDERED: PROMETHAZINE HCL 25 MG/ML 1ML IV PRN (18:15)
[2020-11-29] MEDS: SODIUM CHLORIDE 0.9% 1,000 ML IV SCH ×2 (18:15→20:15)
[2020-11-29] MEDS ORDERED: traMADol HCL 50 MG TAB PO PRN (18:15)
[2020-11-29] MEDS ORDERED: ACETAMINOPHEN 500 MG TAB PO PRN (18:15)
[2020-11-29] MEDS ORDERED: TEMAZEPAM 15 MG CAP PO PRN (18:15)
[2020-11-29] MEDS ORDERED: InsuLIN R (HUMAN) 100 UNITS in SODIUM CHL 0.9% 99 ML IV SCH (18:15)
[2020-11-29 18:57] LABS: BUN/Creatinine Ratio 14.5; Calcium 9.2 mg/dL (8.5-10.1)
[2020-11-29] MEDS: ACCU-CHEK COMFORT CURVE STRIP VI SCH ×3 (19:30→22:30)
[2020-11-29 19:35] LABS: Potassium 3.4 mmol/L (3.5-5.1)
[2020-11-29] MEDS: MORPHINE SULFATE INJECTION 2 MG/ML SYRG IV PRN ×2 (20:00→21:02)
[2020-11-29] MEDS ORDERED: InsuLIN REG 1unit/0.01ml Soln (100units/ml) ONE (20:20)
[2020-11-29] MEDS: FAMOTIDINE (10MG/ML) 2ML VL IV SCH ×2 (22:00→22:50)
[2020-11-29] MEDS ORDERED: SODIUM CHLORIDE 0.9% 1,000 ML IV SCH (22:15)
[2020-11-29] MEDS: DEXTROSE (50%) 50ML SYRG IV PRN (22:30)
[2020-11-29 23:43] LABS: BUN/Creatinine Ratio 14.5; Calcium 7.9 mg/dL (8.5-10.1); Potassium 3.3 mmol/L (3.5-5.1)
[2020-11-30 01:32] LABS: BUN/Creatinine Ratio 13.9; Potassium 3.8 mmol/L (3.5-5.1)
[2020-11-30] MEDS: SODIUM CHLORIDE 0.9% 1,000 ML IV SCH ×2 (02:28→06:55)
[2020-11-30] MEDS: ACCU-CHEK COMFORT CURVE STRIP VI SCH ×5 (02:29→06:00)
[2020-11-30 07:01] LABS: Albumin 2.6 g/dL (3.4-5.0); Calcium 7.7 mg/dL (8.5-10.1); Potassium 3.6 mmol/L (3.5-5.1)
[2020-11-30 07:05] LABS: BUN/Creatinine Ratio 11.5; Bilirubin, Total 0.4 mg/dL (0.2-1.0); Total Protein 6.9 g/dL (6.4-8.2)
[2020-11-30] MEDS ORDERED: DEXTROSE (50%) 50ML SYRG IV PRN (07:15)
[2020-11-30] MEDS ORDERED: SODIUM CHLORIDE 0.9% 1,000 ML IV SCH (08:30)
[2020-11-30] MEDS ORDERED: INSULIN LANTUS (GLARGINE) 1 /0.01ml (100units/ml) SC SCH (10:00)
[2020-11-30 10:52] VITALS: BP 104/64
[2020-11-30] MEDS: FAMOTIDINE (10MG/ML) 2ML VL IV SCH (11:20)
[2020-11-30] MEDS: MORPHINE SULFATE INJECTION 2 MG/ML SYRG IV PRN (11:26)
[2020-11-30] MEDS ORDERED: ACCU-CHEK COMFORT CURVE STRIP VI SCH (11:30)
[2020-11-30] MEDS ORDERED: InsuLIN REG 1unit/0.01ml Soln (100units/ml) SC SCH (11:30)
== END 2020-11-30 11:54 | disposition home or self-care (01) | DRG 420 ==
LOC: ER 15:00 → TELE 18:10
PROVIDERS: ADMIT Internal Medicine; ATTEND Internal Medicine
DX: E10.10 Type 1 diabetes mellitus with ketoacidosis without coma (principal); D63.8 Anemia in other chronic diseases classified elsewhere; E87.1 Hypo-osmolality and hyponatremia; Z20.822 Contact with and (suspected) exposure to COVID-19; Z82.49 Family history of ischemic heart disease and other diseases of the circulatory system; Z91.19 Patient's noncompliance with other medical treatment and regimen; Z83.3 Family history of diabetes mellitus; Z79.4 Long term (current) use of insulin; N17.9 Acute kidney failure, unspecified
CPT/HCPCS: 36415; 71045; 80048; 80053; 82150; 82962; 83036; 83690; 83735; 84702; 85025; 87426; 96361; 96374; 96375; G0378; J1815; J2405; J3490

== ENCOUNTER 2021-08-19 11:32 | Emergency (ER) | payer MEDICAID ==
[~2021-08-19] VITALS: Ht 152.4 cm; Wt 71.2 kg
[2021-08-19 11:36] VITALS: BP 132/84
[2021-08-19 12:53] LABS: Urine Bacteria NONE SEEN /hpf (None Seen); Urine Blood Negative /uL (Negative); Urine Specific Gravity 1.017 (1.001-1.035); Urine WBC 6 /hpf (0 - 5)
== END 2021-08-19 13:41 | disposition home or self-care (01) ==
LOC: ER 11:32
DX: N39.0 Urinary tract infection, site not specified (principal); E11.9 Type 2 diabetes mellitus without complications; Z79.4 Long term (current) use of insulin; Z79.899 Other long term (current) drug therapy
CPT/HCPCS: 81001; 81025

== ENCOUNTER 2021-10-31 02:37 | Inpatient (IN) | payer MEDICAID ==
[~2021-10-31] VITALS: Ht 165.1 cm; Wt 81.6 kg
[2021-10-31] MEDS ORDERED: ONDANSETRON HCL 4 MG/2 ML VIAL IV ONE ×2 (02:45→09:45)
[2021-10-31] MEDS ORDERED: METOCLOPRAMIDE HCL 5MG/ml INJ 2ml VIAL IV ONE (03:00)
[2021-10-31 05:46] LABS: Urine Bacteria FEW /hpf (None Seen); Urine Blood 1+ /uL (Negative); Urine Specific Gravity 1.018 (1.001-1.035); Urine WBC 20 /hpf (0 - 5)
[2021-10-31 06:44] LABS: Basophils # (auto) 0 10 ^3/uL (0-0.2); Basophils % (auto) 0.2 % (0.0-2.0); Eosinophils # (auto) 0 10 ^3/uL (0-0.8); Hematocrit 32.3 % (36.0-46.0); Hemoglobin 10.6 g/dL (12.2-16.2); Lymphocytes # (auto) 0.9 10 ^3/uL (0.4-5.4); Lymphocytes % (auto) 7.4 % (10.0-50.0); Mean Corpuscular Hemoglobin 28.5 pg (28.0-32.0); Mean Corpuscular Hgb Conc. 32.7 g/dL (32.0-36.0); Mean Corpuscular Volume 87.3 fL (80.0-100.0); Monocytes # (auto) 0.3 10 ^3/uL (0-1.3); Monocytes % (auto) 2.4 % (0.0-12.0); Neutrophils # (auto) 10.5 10 ^3/uL (1.6-8.6); Red Blood Cells 3.71 10^6/uL (4.0-5.20); Red Cell Distribution Width 13.3 % (11.8-14.3); White Blood Cell 11.6 10^3/uL (4.4-10.8)
[2021-10-31 06:49] LABS: Potassium 4.6 mmol/L (3.5-5.1)
[2021-10-31 06:55] LABS: Albumin 3.9 g/dL (3.4-5.0); BUN/Creatinine Ratio 17.8; Bilirubin, Total 0.6 mg/dL (0.2-1.0); Calcium 8.9 mg/dL (8.5-10.1); Total Protein 8.8 g/dL (6.4-8.2)
[2021-10-31] MEDS ORDERED: cefTRIAXone 1GM/50ML D5W 50 ML IV ONE (07:45)
[2021-10-31] MEDS ORDERED: DEXTROSE (50%) 50ML SYRG IV PRN ×2 (09:45→17:30)
[2021-10-31] MEDS ORDERED: MORPHINE SULFATE INJECTION 2 MG/ML SYRG IV ONE ×2 (09:45→13:15)
[2021-10-31] MEDS ORDERED: SODIUM CHLORIDE 0.9% 3,000 ML IV ONE (09:45)
[2021-10-31] MEDS ORDERED: InsuLIN R (HUMAN) 100 UNITS in SODIUM CHL 0.9% 99 ML IV SCH (09:45)
[2021-10-31] MEDS ORDERED: InsuLIN REG 1unit/0.01ml Soln (100units/ml) IV ONE (09:45)
[2021-10-31] MEDS ORDERED: SODIUM BICARBONATE 50ML VIAL 100 ML in SOD CHL 0.45% 1,000 ML IV ONE (11:00)
[2021-10-31] MEDS: ACCU-CHEK COMFORT CURVE STRIP VI SCH ×6 (11:00→20:00)
[2021-10-31 11:18] LABS: Albumin 3.6 g/dL (3.4-5.0); Calcium 8.9 mg/dL (8.5-10.1); Potassium 3.7 mmol/L (3.5-5.1)
[2021-10-31 11:21] LABS: Bilirubin, Total 0.4 mg/dL (0.2-1.0); Total Protein 8.2 g/dL (6.4-8.2)
[2021-10-31] MEDS ORDERED: SODIUM BICARBONATE 50ML VIAL 100 ML in D5W 5% 1,000 ML IV ONE (11:30)
[2021-10-31] MEDS ORDERED: ONDANSETRON HCL 4 MG/2 ML VIAL IV PRN (12:00)
[2021-10-31] MEDS ORDERED: ACETAMINOPHEN 325 MG TAB PO PRN (12:00)
[2021-10-31] MEDS ORDERED: DOCUSATE SOD 100 MG CAP PO PRN (12:00)
[2021-10-31] MEDS ORDERED: NITROGLYCERIN 0.4 MG SL TAB SL PRN (12:00)
[2021-10-31] MEDS: HYDROcodone-ACET 5/325MG TAB PO PRN ×2 (12:28→18:52)
[2021-10-31] MEDS: SODIUM BICARBONATE 50ML VIAL 100 ML, POTASSIUM CHLORIDE 20 MEQ in D5W 5% 1,000 ML IV SCH (14:00)
[2021-10-31 17:11] LABS: BUN/Creatinine Ratio 18.8; Calcium 8.9 mg/dL (8.5-10.1); Potassium 3.5 mmol/L (3.5-5.1)
[2021-10-31] MEDS ORDERED: INSU1INJ19 SC (17:28)
[2021-10-31] MEDS ORDERED: LISI-275 PO (17:28)
[2021-10-31] MEDS: INSULIN LANTUS (GLARGINE) 1 /0.01ml (100units/ml) SC SCH ×2 (18:08→22:00)
[2021-10-31] MEDS: InsuLIN REG 1unit/0.01ml Soln (100units/ml) SC SCH (20:00)
[2021-10-31] MEDS: MORPHINE SULFATE INJECTION 2 MG/ML SYRG IV PRN (21:02)
[2021-10-31 22:58] LABS: BUN/Creatinine Ratio 16.3; Calcium 8.6 mg/dL (8.5-10.1); Potassium 3.8 mmol/L (3.5-5.1)
[2021-11-01] MEDS: SODIUM BICARBONATE 50ML VIAL 100 ML, POTASSIUM CHLORIDE 20 MEQ in D5W 5% 1,000 ML IV SCH ×2 (01:12→12:12)
[2021-11-01 02:21] LABS: BUN/Creatinine Ratio 15.9; Calcium 8.3 mg/dL (8.5-10.1); Potassium 3.3 mmol/L (3.5-5.1)
[2021-11-01] MEDS: MORPHINE SULFATE INJECTION 2 MG/ML SYRG IV PRN (03:08)
[2021-11-01] MEDS: InsuLIN REG 1unit/0.01ml Soln (100units/ml) SC SCH ×4 (04:00→12:00)
[2021-11-01] MEDS: ACCU-CHEK COMFORT CURVE STRIP VI SCH ×4 (04:00→12:00)
[2021-11-01] MEDS: HYDROcodone-ACET 5/325MG TAB PO PRN (06:35)
[2021-11-01 07:36] LABS: Basophils # (auto) 0 10 ^3/uL (0-0.2); Basophils % (auto) 0.3 % (0.0-2.0); Eosinophils # (auto) 0.1 10 ^3/uL (0-0.8); Eosinophils % (auto) 1.2 % (0.0-7.0); Hematocrit 29.8 % (36.0-46.0); Hemoglobin 10.4 g/dL (12.2-16.2); Lymphocytes # (auto) 2.7 10 ^3/uL (0.4-5.4); Lymphocytes % (auto) 41.9 % (10.0-50.0); Mean Corpuscular Hemoglobin 29.4 pg (28.0-32.0); Mean Corpuscular Hgb Conc. 34.8 g/dL (32.0-36.0); Mean Corpuscular Volume 84.4 fL (80.0-100.0); Monocytes # (auto) 0.6 10 ^3/uL (0-1.3); Monocytes % (auto) 9.9 % (0.0-12.0); Neutrophils % (auto) 46.7 % (37.0-80.0); Nucleated Red Blood Cells % 0.1 %; Red Blood Cells 3.53 10^6/uL (4.0-5.20); Red Cell Distribution Width 13.5 % (11.8-14.3); White Blood Cell 6.5 10^3/uL (4.4-10.8)
[2021-11-01 07:47] LABS: Calcium 8.5 mg/dL (8.5-10.1); Potassium 3.2 mmol/L (3.5-5.1)
[2021-11-01] MEDS ORDERED: SODIUM BICARBONATE 50ML VIAL 50 ML, POTASSIUM CHLORIDE 20 MEQ in D5W 5% 1,000 ML IV SCH (10:00)
[2021-11-01] MEDS ORDERED: SODIUM BICARBONATE 50ML VIAL 50 ML, POTASSIUM CHLORIDE 20 MEQ in SOD CHL 0.45% 1,000 ML IV PRN (10:00)
[2021-11-01] MEDS ORDERED: cefTRIAXone 1GM/50ML D5W 50 ML IV SCH (10:00)
[2021-11-01] MEDS ORDERED: FERROUS SULFATE 300 MG/5 ML ORAL LIQ PO SCH (10:00)
[2021-11-01] MEDS ORDERED: POTA-180 PO (13:14)
[2021-11-01] MEDS ORDERED: POTASSIUM CHL 20 Meq TABLET PO ONE (13:15)
[2021-11-01 13:17] VITALS: BP 118/73
[2021-11-01] MEDS ORDERED: BLOO1KIT60 XX (13:17)
== END 2021-11-01 14:00 | disposition home or self-care (01) | DRG 420 ==
LOC: EDBD 02:37 → ER 02:37 → TELE 02:38
PROVIDERS: ADMIT Internal Medicine; ATTEND Internal Medicine
DX: E10.10 Type 1 diabetes mellitus with ketoacidosis without coma (principal); N17.9 Acute kidney failure, unspecified; D63.8 Anemia in other chronic diseases classified elsewhere; E10.21 Type 1 diabetes mellitus with diabetic nephropathy; E87.6 Hypokalemia; E86.0 Dehydration; E87.1 Hypo-osmolality and hyponatremia; I10 Essential (primary) hypertension; N39.0 Urinary tract infection, site not specified; Z20.822 Contact with and (suspected) exposure to COVID-19; Z82.49 Family history of ischemic heart disease and other diseases of the circulatory system; Z83.3 Family history of diabetes mellitus; Z91.19 Patient's noncompliance with other medical treatment and regimen; Z79.4 Long term (current) use of insulin
CPT/HCPCS: 36415; 36600; 80048; 80053; 81001; 81025; 82805; 82962; 84484; 85025; 87086; 87426; 93005; 96361; 96365; 96367; 96375; 99291; G0378; J0696; J1815; J2405

== ENCOUNTER 2021-11-08 17:36 | Emergency (ER) | payer MEDICAID ==
[~2021-11-08] VITALS: Ht 152.4 cm; Wt 57.6 kg
[~2021-11-08 17:36] MED LIST changes: +BLOO1KIT60 XX; +INSU1INJ19 SC; -LISI-275 PO; +POTA-180 PO
[2021-11-08 18:46] LABS: Basophils # (auto) 0 10 ^3/uL (0-0.2); Basophils % (auto) 0.4 % (0.0-2.0); Eosinophils # (auto) 0 10 ^3/uL (0-0.8); Eosinophils % (auto) 0.3 % (0.0-7.0); Hematocrit 37.1 % (36.0-46.0); Lymphocytes # (auto) 1.3 10 ^3/uL (0.4-5.4); Lymphocytes % (auto) 17.9 % (10.0-50.0); Mean Corpuscular Hemoglobin 28.5 pg (28.0-32.0); Mean Corpuscular Hgb Conc. 32.3 g/dL (32.0-36.0); Mean Corpuscular Volume 88.4 fL (80.0-100.0); Monocytes # (auto) 0.5 10 ^3/uL (0-1.3); Monocytes % (auto) 6.4 % (0.0-12.0); Neutrophils # (auto) 5.4 10 ^3/uL (1.6-8.6); Nucleated Red Blood Cells % 0.1 %; Red Cell Distribution Width 14.3 % (11.8-14.3); White Blood Cell 7.2 10^3/uL (4.4-10.8)
[2021-11-08 19:06] VITALS: BP 108/57
== END 2021-11-09 00:22 | disposition home or self-care (01) ==
LOC: ER 17:36 → EDBD 17:36 → ER 21:32
DX: J06.9 Acute upper respiratory infection, unspecified (principal); E10.649 Type 1 diabetes mellitus with hypoglycemia without coma; R55 Syncope and collapse
CPT/HCPCS: 36415; 71046; 82962; 85025; 87426

== ENCOUNTER 2022-08-23 04:35 | Inpatient (IN) | payer MEDICAID ==
[~2022-08-23] VITALS: Ht 152.4 cm; Wt 56.9 kg
[2022-08-23] MEDS ORDERED: SODIUM CHLORIDE 0.9% 1,000 ML IV ONE (05:45)
[2022-08-23] MEDS ORDERED: ONDANSETRON HCL 4 MG/2 ML VIAL IV ONE (05:45)
[2022-08-23] MEDS ORDERED: InsuLIN REG 1unit/0.01ml Soln (100units/ml) IV ONE (06:15)
[2022-08-23 06:24] LABS: Urine Bacteria NONE SEEN /hpf (None Seen); Urine Blood 3+ /uL (Negative); Urine Specific Gravity 1.014 (1.001-1.035); Urine WBC 34 /hpf (0 - 5)
[2022-08-23] MEDS ORDERED: PANTOPRAZOLE 40 MG/10 ML VIAL INJ IV ONE (06:30)
[2022-08-23] MEDS ORDERED: PROCHLORPERAZINE EDISYLATE 5 MG/ML 2ML VIAL IV ONE (06:30)
[2022-08-23] MEDS ORDERED: DEXTROSE (50%) 50ML SYRG IV PRN ×3 (06:30→21:15)
[2022-08-23] MEDS ORDERED: SODIUM CHLORIDE 0.9% 1,000 ML IVB ONE (06:30)
[2022-08-23] MEDS ORDERED: InsuLIN R (HUMAN) 100 UNITS in SODIUM CHL 0.9% 99 ML IV SCH (06:30)
[2022-08-23] MEDS ORDERED: INSULIN LANTUS (GLARGINE) 1 /0.01ml (100units/ml) SC ONE (06:30)
[2022-08-23 06:44] LABS: Alcohol, Urine < 3.0 mg/dL (0-10); Amphetamine Screen, Urine NEGATIVE (NEGATIVE); Barbiturate Scree,Urine NEGATIVE (NEGATIVE); Benzodiazephine Screen, Urine NEGATIVE (NEGATIVE); Cannabinoid Screen, Urine NEGATIVE (NEGATIVE); Cocaine Screen, Urine NEGATIVE (NEGATIVE); Opiate Scree,Urine NEGATIVE (NEGATIVE); Phencyclidine Screen, Urine NEGATIVE (NEGATIVE)
[2022-08-23] MEDS: ACCU-CHEK COMFORT CURVE STRIP VI SCH ×10 (07:40→21:00)
[2022-08-23 07:43] LABS: Basophils # (auto) 0 10 ^3/uL (0-0.2); Basophils % (auto) 0.4 % (0.0-2.0); Eosinophils # (auto) 0 10 ^3/uL (0-0.8); Hematocrit 27.2 % (36.0-46.0); Lymphocytes # (auto) 0.6 10 ^3/uL (0.4-5.4); Mean Corpuscular Hemoglobin 27.6 pg (28.0-32.0); Mean Corpuscular Hgb Conc. 33.1 g/dL (32.0-36.0); Mean Corpuscular Volume 83.4 fL (80.0-100.0); Monocytes # (auto) 0.3 10 ^3/uL (0-1.3); Monocytes % (auto) 3.1 % (0.0-12.0); Neutrophils % (auto) 90.5 % (37.0-80.0); Red Blood Cells 3.26 10^6/uL (4.0-5.20); Red Cell Distribution Width 16.3 % (11.8-14.3)
[2022-08-23 08:15] LABS: Albumin 3.6 g/dL (3.4-5.0); Calcium 8.4 mg/dL (8.5-10.1); Potassium 3.7 mmol/L (3.5-5.1)
[2022-08-23 08:24] LABS: BUN/Creatinine Ratio 18.1; Bilirubin, Total 0.9 mg/dL (0.2-1.0)
[2022-08-23] MEDS ORDERED: cefTRIAXone 1GM/50ML D5W 50 ML IV ONE (10:15)
[2022-08-23 11:00] LABS: Salicylate < 1.7 mg/dL (2.8-20.0)
[2022-08-23] MEDS ORDERED: NITROGLYCERIN 0.4 MG SL TAB SL PRN (11:00)
[2022-08-23] MEDS ORDERED: MORPHINE SULFATE INJ 2 MG/ml SYRG IV PRN (11:00)
[2022-08-23 11:38] LABS: Acetaminophen < 2.0 ug/mL (10-30)
[2022-08-23 12:55] LABS: BUN/Creatinine Ratio 17.1; Calcium 8.4 mg/dL (8.5-10.1); Potassium 3.5 mmol/L (3.5-5.1)
[2022-08-23] MEDS: ONDANSETRON HCL 4 MG/2 ML VIAL IV PRN ×2 (13:51→18:49)
[2022-08-23 14:29] LABS: Cholesterol 137 mg/dL (< 200)
[2022-08-23 14:32] LABS: HDL Cholesterol 48 mg/dL (40-59); LDL Cholesterol 78 mg/dL (< 100); Triglycerides 90 mg/dL (< 150)
[2022-08-23] MEDS ORDERED: InsuLIN REG 1unit/0.01ml Soln (100units/ml) SC SCH (17:00)
[2022-08-23] MEDS ORDERED: ACCU-CHEK COMFORT CURVE STRIP VI SCH (17:00)
[2022-08-23 17:05] LABS: Urine Bacteria MANY /hpf (None Seen); Urine Blood 3+ /uL (Negative); Urine Specific Gravity 1.012 (1.001-1.035); Urine WBC 42 /hpf (0 - 5); Urine WBC Clumps PRESENT /hpf (None Seen)
[2022-08-23] MEDS: D5W/SOD CHL 0.45%/KCL 40MEQ 1,000 ML IV SCH (18:23)
[2022-08-23 18:56] LABS: BUN/Creatinine Ratio 17.6; Calcium 8.5 mg/dL (8.5-10.1); Potassium 3.8 mmol/L (3.5-5.1)
[2022-08-23] MEDS ORDERED: HYDROcodone-ACET 5/325MG TAB PO ONE (23:30)
[2022-08-24] VITALS (9 sets, daily range): BP systolic 127–186; BP diastolic 71–116
[2022-08-24] MEDS ORDERED: InsuLIN REG 1unit/0.01ml Soln (100units/ml) SC SCH
[2022-08-24] MEDS: InsuLIN REG 1unit/0.01ml Soln (100units/ml) SC SCH ×6 (00:05→20:40)
[2022-08-24 01:08] LABS: Calcium 8.8 mg/dL (8.5-10.1); Potassium 3.8 mmol/L (3.5-5.1)
[2022-08-24 01:09] LABS: BUN/Creatinine Ratio 14.6
[2022-08-24] MEDS: ONDANSETRON HCL 4 MG/2 ML VIAL IV PRN ×2 (01:31→08:40)
[2022-08-24] MEDS: D5W/SOD CHL 0.45%/KCL 40MEQ 1,000 ML IV SCH ×2 (03:30→12:18)
[2022-08-24] MEDS: ACCU-CHEK COMFORT CURVE STRIP VI SCH ×6 (04:24→20:41)
[2022-08-24] MEDS ORDERED: PROMETHAZINE HCL 25 MG/ML 1ML IV PRN (05:30)
[2022-08-24] MEDS ORDERED: cefTRIAXone 1GM/50ML D5W 50 ML IV SCH (09:00)
[2022-08-24] MEDS ORDERED: INSULIN LANTUS (GLARGINE) 1 /0.01ml (100units/ml) SC SCH (10:00)
[2022-08-24 10:02] LABS: Basophils # (auto) 0 10 ^3/uL (0-0.2); Basophils % (auto) 0.4 % (0.0-2.0); Eosinophils # (auto) 0 10 ^3/uL (0-0.8); Hemoglobin 8.9 g/dL (12.2-16.2); Lymphocytes # (auto) 0.4 10 ^3/uL (0.4-5.4); Lymphocytes % (auto) 5.5 % (10.0-50.0); Red Cell Distribution Width 16.9 % (11.8-14.3)
[2022-08-24 10:04] LABS: Eosinophils % (auto) 0.2 % (0.0-7.0); Hematocrit 26.6 % (36.0-46.0); Mean Corpuscular Hemoglobin 27.3 pg (28.0-32.0); Mean Corpuscular Hgb Conc. 33.4 g/dL (32.0-36.0); Mean Corpuscular Volume 81.6 fL (80.0-100.0); Monocytes # (auto) 0.5 10 ^3/uL (0-1.3); Monocytes % (auto) 6.5 % (0.0-12.0); Neutrophils # (auto) 6.2 10 ^3/uL (1.6-8.6); Neutrophils % (auto) 87.4 % (37.0-80.0); Red Blood Cells 3.26 10^6/uL (4.0-5.20)
[2022-08-24 10:17] LABS: BUN/Creatinine Ratio 10.5; Calcium 8.9 mg/dL (8.5-10.1); Potassium 3.7 mmol/L (3.5-5.1)
[2022-08-24] MEDS ORDERED: THROAT LOZENGES(CEPASTAT) MT PRN (12:30)
[2022-08-24] MEDS ORDERED: METOCLOPRAMIDE HCL 5MG/ml INJ 2ml VIAL IV PRN ×2 (12:30)
[2022-08-24] MEDS: SODIUM CHLORIDE 0.9% 1,000 ML IV SCH (15:00)
[2022-08-24] MEDS ORDERED: PANTOPRAZOLE 40 MG/10 ML VIAL INJ IV ONE (15:00)
[2022-08-24] MEDS ORDERED: METOCLOPRAMIDE HCL 10 MG TAB PO PRN (15:00)
[2022-08-24 15:38] LABS: BUN/Creatinine Ratio 8.2; Calcium 9.2 mg/dL (8.5-10.1)
[2022-08-24] MEDS: ACETAMINOPHEN 500 MG TAB PO PRN ×2 (17:50→21:30)
[2022-08-24] MEDS: hydrALAZINE HCL 20 MG/ML VL IV PRN (18:20)
[2022-08-24 20:36] LABS: BUN/Creatinine Ratio 7.3; Calcium 8.4 mg/dL (8.5-10.1); Potassium 4.1 mmol/L (3.5-5.1)
[2022-08-24] MEDS: INSULIN LANTUS (GLARGINE) 1 /0.01ml (100units/ml) SC SCH (23:16)
[2022-08-24] MEDS: PANTOPRAZOLE 40 MG/10 ML VIAL INJ IV SCH (23:17)
[2022-08-25] VITALS (7 sets, daily range): BP systolic 107–188; BP diastolic 66–123
[2022-08-25] MEDS: ACCU-CHEK COMFORT CURVE STRIP VI SCH ×6 (01:28→20:27)
[2022-08-25] MEDS: InsuLIN REG 1unit/0.01ml Soln (100units/ml) SC SCH ×6 (04:00→20:31)
[2022-08-25] MEDS: SODIUM CHLORIDE 0.9% 1,000 ML IV SCH ×2 (04:20→09:00)
[2022-08-25] MEDS: hydrALAZINE HCL 20 MG/ML VL IV PRN (06:27)
[2022-08-25] MEDS: PANTOPRAZOLE 40 MG/10 ML VIAL INJ IV SCH (09:08)
[2022-08-25] MEDS ORDERED: MORPHINE SULFATE INJ 2 MG/ml SYRG IV ONE ×2 (09:45→10:00)
[2022-08-25] MEDS ORDERED: FAMOTIDINE (10MG/ML) 2ML VL IV SCH (10:00)
[2022-08-25 10:55] LABS: BUN/Creatinine Ratio 8.7; Calcium 8.5 mg/dL (8.5-10.1); Potassium 3.8 mmol/L (3.5-5.1)
[2022-08-25] MEDS: ONDANSETRON HCL 4 MG/2 ML VIAL IV PRN (12:17)
[2022-08-25] MEDS ORDERED: LOSARTAN POTASSIUM 25 MG TAB PO ONE (13:15)
[2022-08-25] MEDS ORDERED: METOCLOPRAMIDE HCL 10 MG TAB PO PRN (13:15)
[2022-08-25] MEDS: ACETAMINOPHEN 500 MG TAB PO PRN (13:40)
[2022-08-25] MEDS: IBUPROFEN 400 MG TAB PO PRN ×2 (16:31→22:53)
[2022-08-25] MEDS ORDERED: amLODIPine BESYLATE 5 MG TAB PO ONE (16:45)
[2022-08-25] MEDS: INSULIN LANTUS (GLARGINE) 1 /0.01ml (100units/ml) SC SCH (22:56)
[2022-08-26] MEDS: ACCU-CHEK COMFORT CURVE STRIP VI SCH ×4 (00:52→11:48)
[2022-08-26] MEDS: InsuLIN REG 1unit/0.01ml Soln (100units/ml) SC SCH ×4 (00:53→11:50)
[2022-08-26 05:00] VITALS: BP 92/55
[2022-08-26 06:26] LABS: Potassium 3.4 mmol/L (3.5-5.1)
[2022-08-26 06:37] LABS: BUN/Creatinine Ratio 7.8; Calcium 8.7 mg/dL (8.5-10.1)
[2022-08-26] MEDS: SODIUM CHLORIDE 0.9% 1,000 ML IV SCH (06:53)
[2022-08-26 08:00] VITALS: BP 141/96
[2022-08-26 09:00] VITALS: BP 147/96
[2022-08-26] MEDS ORDERED: LOSARTAN POTASSIUM 25 MG TAB PO SCH (10:00)
[2022-08-26 13:00] VITALS: BP 124/100
[2022-08-26] MEDS ORDERED: METO-517 PO (13:09)
[2022-08-26] MEDS ORDERED: LOS25T PO (13:09)
== END 2022-08-26 15:40 | disposition home or self-care (01) | DRG 420 ==
LOC: ER 04:35 → EDBD 04:35 → TELE 10:59 → TELE-EAST 08-24 00:30
PROVIDERS: ADMIT Registered Nurse; ATTEND Student in an Organized Health Care Education/Training Program
DX: E10.10 Type 1 diabetes mellitus with ketoacidosis without coma (principal); N17.9 Acute kidney failure, unspecified; D63.8 Anemia in other chronic diseases classified elsewhere; N13.30 Unspecified hydronephrosis; E10.43 Type 1 diabetes mellitus with diabetic autonomic (poly)neuropathy; K31.84 Gastroparesis; E10.22 Type 1 diabetes mellitus with diabetic chronic kidney disease; E86.0 Dehydration; N39.490 Overflow incontinence; K21.00 Gastro-esophageal reflux disease with esophagitis, without bleeding; G43.909 Migraine, unspecified, not intractable, without status migrainosus; I12.9 Hypertensive chronic kidney disease with stage 1 through stage 4 chronic kidney disease, or unspecified chronic kidney disease; N18.9 Chronic kidney disease, unspecified; F32.A Depression, unspecified; E78.5 Hyperlipidemia, unspecified; Z96.41 Presence of insulin pump (external) (internal); N31.9 Neuromuscular dysfunction of bladder, unspecified; Z20.822 Contact with and (suspected) exposure to COVID-19; Z83.3 Family history of diabetes mellitus; Z82.49 Family history of ischemic heart disease and other diseases of the circulatory system; Z91.199 Patient's noncompliance with other medical treatment and regimen due to unspecified reason
CPT/HCPCS: 36415; 36600; 74176; 76775; 80048; 80053; 80061; 80307; 80320; 80329; 81001; 82010; 82805; 82962; 83036; 83690; 84702; 85025; 86850; 86900; 86901; 87086; 87088; 87186; 87426; 93005; 96361; 96374; 96375; 99291; C9113; G0378; J0696; J1815; J2405

== ENCOUNTER 2022-09-02 00:25 | Inpatient (IN) | payer MEDICAID ==
[~2022-09-02] VITALS: Ht 157.5 cm; Wt 52.4 kg
[~2022-09-02 00:25] MED LIST changes: +LOS25T PO; +METO-517 PO
[2022-09-02 02:11] LABS: Basophils # (auto) 0 10 ^3/uL (0-0.2); Hemoglobin 10.2 g/dL (12.2-16.2); Lymphocytes # (auto) 1.9 10 ^3/uL (0.4-5.4); Monocytes # (auto) 0.8 10 ^3/uL (0-1.3)
[2022-09-02 02:12] LABS: Basophils % (auto) 0.3 % (0.0-2.0); Eosinophils # (auto) 0 10 ^3/uL (0-0.8); Eosinophils % (auto) 0.6 % (0.0-7.0); Hematocrit 31.1 % (36.0-46.0); Lymphocytes % (auto) 24.2 % (10.0-50.0); Mean Corpuscular Hemoglobin 26.8 pg (28.0-32.0); Mean Corpuscular Hgb Conc. 32.8 g/dL (32.0-36.0); Mean Corpuscular Volume 81.8 fL (80.0-100.0); Monocytes % (auto) 10.2 % (0.0-12.0); Neutrophils # (auto) 5.1 10 ^3/uL (1.6-8.6); Neutrophils % (auto) 64.7 % (37.0-80.0); Red Blood Cells 3.81 10^6/uL (4.0-5.20); Red Cell Distribution Width 16.5 % (11.8-14.3); White Blood Cell 7.9 10^3/uL (4.4-10.8)
[2022-09-02] MEDS ORDERED: DEXTROSE (50%) 50ML SYRG IV ONE (02:30)
[2022-09-02 02:36] LABS: Albumin 3.6 g/dL (3.4-5.0); Calcium 9.1 mg/dL (8.5-10.1); Potassium 3.2 mmol/L (3.5-5.1)
[2022-09-02 02:41] LABS: Bilirubin, Total 0.3 mg/dL (0.2-1.0); Total Protein 8.3 g/dL (6.4-8.2)
[2022-09-02] MEDS ORDERED: ONDANSETRON HCL 4 MG/2 ML VIAL IV ONE ×3 (03:00→09:00)
[2022-09-02] MEDS ORDERED: SODIUM CHLORIDE 0.9% 1,000 ML IV ONE (03:00)
[2022-09-02] MEDS ORDERED: METOCLOPRAMIDE HCL 5MG/ml INJ 2ml VIAL IV ONE ×2 (05:15→09:15)
[2022-09-02] MEDS ORDERED: HYDROmorphone HCL 2 MG/ML VL/or syr IV ONE (06:15)
[2022-09-02 07:00] LABS: Urine Bacteria NONE SEEN /hpf (None Seen); Urine Budding Yeast MANY /hpf (None Seen); Urine WBC 1112 /hpf (0 - 5); Urine WBC Clumps PRESENT /hpf (None Seen)
[2022-09-02 07:02] LABS: Urine Specific Gravity 1.015 (1.001-1.035)
[2022-09-02 07:03] LABS: Urine Blood Trace /uL (Negative)
[2022-09-02] MEDS ORDERED: DOCUSATE SOD 100 MG CAP PO PRN (09:15)
[2022-09-02] MEDS ORDERED: SORE THROAT SPRAY 6OZ BOTTLE MT PRN (09:15)
[2022-09-02] MEDS ORDERED: POTASSIUM CHL 20 Meq TABLET PO ONE (09:15)
[2022-09-02] MEDS ORDERED: DEXTROSE (50%) 50ML SYRG IV PRN (09:15)
[2022-09-02 09:40] LABS: Magnesium 2.4 mg/dL (1.6-2.6); Phosphorus 2.8 mg/dL (2.5-4.90)
[2022-09-02] MEDS: ENOXAPARIN SOD 40 MG/0.4 ML SYRINGE SC SCH (10:36)
[2022-09-02] MEDS: InsuLIN REG 1unit/0.01ml Soln (100units/ml) SC SCH ×3 (11:30→22:54)
[2022-09-02] MEDS: ACCU-CHEK COMFORT CURVE STRIP VI SCH ×3 (11:48→22:00)
[2022-09-02] MEDS: ONDANSETRON HCL 4 MG/2 ML VIAL IV PRN ×3 (13:10→22:59)
[2022-09-02] MEDS ORDERED: hydrALAZINE HCL 20 MG/ML VL IV ONE (18:00)
[2022-09-02] MEDS: MORPHINE SULFATE INJ 2 MG/ml SYRG IV PRN ×2 (18:05→23:01)
[2022-09-02] MEDS ORDERED: AMOXICILLIN/CLAVUL 875 MG TAB PO SCH (22:00)
[2022-09-02] MEDS ORDERED: INSULIN LANTUS (GLARGINE) 1 /0.01ml (100units/ml) SC SCH (22:00)
[2022-09-03] MEDS: ONDANSETRON HCL 4 MG/2 ML VIAL IV PRN ×2 (03:38→10:35)
[2022-09-03] MEDS: MORPHINE SULFATE INJ 2 MG/ml SYRG IV PRN ×3 (03:40→18:10)
[2022-09-03] MEDS: ACCU-CHEK COMFORT CURVE STRIP VI SCH ×4 (06:48→22:10)
[2022-09-03] MEDS: InsuLIN REG 1unit/0.01ml Soln (100units/ml) SC SCH ×4 (06:55→22:10)
[2022-09-03 07:01] LABS: Basophils # (auto) 0 10 ^3/uL (0-0.2); Basophils % (auto) 0.5 % (0.0-2.0); Eosinophils # (auto) 0 10 ^3/uL (0-0.8); Eosinophils % (auto) 0.8 % (0.0-7.0); Hematocrit 32.3 % (36.0-46.0); Hemoglobin 10.5 g/dL (12.2-16.2); Lymphocytes # (auto) 1.6 10 ^3/uL (0.4-5.4); Lymphocytes % (auto) 30.8 % (10.0-50.0); Mean Corpuscular Hemoglobin 26.6 pg (28.0-32.0); Mean Corpuscular Hgb Conc. 32.4 g/dL (32.0-36.0); Mean Corpuscular Volume 82.1 fL (80.0-100.0); Monocytes # (auto) 0.5 10 ^3/uL (0-1.3); Monocytes % (auto) 10.4 % (0.0-12.0); Neutrophils # (auto) 2.9 10 ^3/uL (1.6-8.6); Neutrophils % (auto) 57.5 % (37.0-80.0); Nucleated Red Blood Cells % 0.1 %; Red Blood Cells 3.94 10^6/uL (4.0-5.20); Red Cell Distribution Width 16.4 % (11.8-14.3); White Blood Cell 5.1 10^3/uL (4.4-10.8)
[2022-09-03 07:21] LABS: Calcium 9.3 mg/dL (8.5-10.1); Potassium 3.6 mmol/L (3.5-5.1)
[2022-09-03 07:24] LABS: Albumin 3.2 g/dL (3.4-5.0); BUN/Creatinine Ratio 9.7
[2022-09-03 07:26] LABS: Bilirubin, Total 0.4 mg/dL (0.2-1.0); Total Protein 7.2 g/dL (6.4-8.2)
[2022-09-03] MEDS ORDERED: cefTRIAXone 1GM/50ML D5W 50 ML IV SCH (09:00)
[2022-09-03] MEDS ORDERED: LISINOPRIL 20 MG TAB PO SCH (10:00)
[2022-09-03] MEDS ORDERED: LOSARTAN POTASSIUM 25 MG TAB PO SCH (10:00)
[2022-09-03] MEDS ORDERED: INSULIN LANTUS (GLARGINE) 1 /0.01ml (100units/ml) SC ONE (10:15)
[2022-09-03] MEDS ORDERED: METOCLOPRAMIDE HCL 5MG/ml INJ 2ml VIAL IV ONE (10:15)
[2022-09-03] MEDS: ENOXAPARIN SOD 40 MG/0.4 ML SYRINGE SC SCH (10:32)
[2022-09-03] MEDS: FERROUS SULFATE 325mg EC TAB PO SCH (10:35)
[2022-09-03] MEDS ORDERED: METOCLOPRAMIDE HCL 10 MG TAB PO SCH (11:30)
[2022-09-03] MEDS ORDERED: amLODIPine BESYLATE 5 MG TAB PO ONE (12:15)
[2022-09-03] MEDS: SOD CHL 0.45% 1,000 ML IV SCH ×2 (12:44→16:56)
[2022-09-03] MEDS ORDERED: cloNIDine HCL 0.1 MG TAB PO ONE (13:45)
[2022-09-03] MEDS ORDERED: hydrALAZINE HCL 20 MG/ML VL IV PRN (14:00)
[2022-09-03 16:55] VITALS: BP 167/110
[2022-09-03] MEDS: METOCLOPRAMIDE HCL 10 MG TAB PO SCH (16:59)
[2022-09-03 18:36] VITALS: BP 167/110
[2022-09-03 22:00] VITALS: BP 146/105
[2022-09-03] MEDS: METOCLOPRAMIDE HCL 5MG/ml INJ 2ml VIAL IV SCH (22:10)
[2022-09-04] MEDS: SOD CHL 0.45% 1,000 ML IV SCH ×2 (02:55→11:15)
[2022-09-04 05:00] VITALS: BP 103/58
[2022-09-04] MEDS: InsuLIN REG 1unit/0.01ml Soln (100units/ml) SC SCH ×4 (06:27→21:40)
[2022-09-04] MEDS: ACCU-CHEK COMFORT CURVE STRIP VI SCH ×4 (06:28→21:40)
[2022-09-04] MEDS: METOCLOPRAMIDE HCL 5MG/ml INJ 2ml VIAL IV SCH (06:32)
[2022-09-04] MEDS: METOCLOPRAMIDE HCL 10 MG TAB PO SCH ×3 (06:32→17:05)
[2022-09-04 07:30] VITALS: BP 167/110
[2022-09-04 09:00] VITALS: BP 141/100
[2022-09-04] MEDS: FERROUS SULFATE 325mg EC TAB PO SCH (09:43)
[2022-09-04] MEDS: ENOXAPARIN SOD 40 MG/0.4 ML SYRINGE SC SCH (09:44)
[2022-09-04] MEDS: MORPHINE SULFATE INJ 2 MG/ml SYRG IV PRN (09:44)
[2022-09-04] MEDS: amLODIPine BESYLATE 5 MG TAB PO SCH (09:45)
[2022-09-04] MEDS: INSULIN LANTUS (GLARGINE) 1 /0.01ml (100units/ml) SC SCH (09:54)
[2022-09-04] MEDS ORDERED: HYDROcodone-ACET 5/325MG TAB PO PRN (16:30)
[2022-09-04] MEDS ORDERED: ACETAMINOPHEN 325 MG TAB PO PRN (16:30)
[2022-09-04 17:00] VITALS: BP 135/104
[2022-09-04 22:00] VITALS: BP 133/78
[2022-09-05] MEDS: MORPHINE SULFATE INJ 2 MG/ml SYRG IV PRN ×3 (04:21→22:15)
[2022-09-05 05:00] VITALS: BP 126/85
[2022-09-05] MEDS: InsuLIN REG 1unit/0.01ml Soln (100units/ml) SC SCH ×4 (06:10→22:11)
[2022-09-05] MEDS: METOCLOPRAMIDE HCL 10 MG TAB PO SCH ×3 (06:15→17:41)
[2022-09-05] MEDS: ACCU-CHEK COMFORT CURVE STRIP VI SCH ×4 (06:15→22:11)
[2022-09-05] MEDS: INSULIN LANTUS (GLARGINE) 1 /0.01ml (100units/ml) SC SCH (08:16)
[2022-09-05 09:00] VITALS: BP 144/108
[2022-09-05] MEDS: FERROUS SULFATE 325mg EC TAB PO SCH (09:45)
[2022-09-05] MEDS: ENOXAPARIN SOD 40 MG/0.4 ML SYRINGE SC SCH (09:45)
[2022-09-05] MEDS: amLODIPine BESYLATE 5 MG TAB PO SCH (09:45)
[2022-09-05 13:00] VITALS: BP 125/83
[2022-09-05 16:45] VITALS: BP 119/76
[2022-09-05 22:00] VITALS: BP 125/91
[2022-09-06] MEDS: MORPHINE SULFATE INJ 2 MG/ml SYRG IV PRN (04:47)
[2022-09-06 05:00] VITALS: BP 156/99
[2022-09-06] MEDS: METOCLOPRAMIDE HCL 10 MG TAB PO SCH (06:39)
[2022-09-06] MEDS: InsuLIN REG 1unit/0.01ml Soln (100units/ml) SC SCH (06:40)
[2022-09-06] MEDS: ACCU-CHEK COMFORT CURVE STRIP VI SCH (06:40)
[2022-09-06] MEDS: INSULIN LANTUS (GLARGINE) 1 /0.01ml (100units/ml) SC SCH (08:26)
[2022-09-06 08:53] VITALS: BP 111/80
[2022-09-06] MEDS: ENOXAPARIN SOD 40 MG/0.4 ML SYRINGE SC SCH (09:36)
[2022-09-06] MEDS: amLODIPine BESYLATE 5 MG TAB PO SCH (09:36)
[2022-09-06] MEDS: FERROUS SULFATE 325mg EC TAB PO SCH (09:36)
[2022-09-06 12:30] VITALS: BP 116/77
[2022-09-06 13:37] VITALS: BP 116/77
== END 2022-09-06 15:08 | disposition home health service (06) | DRG 468 ==
LOC: ER 00:25 → OVERFLOW 09:22 → WEST WING 09-03 15:20
PROVIDERS: ADMIT Nurse Practitioner Family; ATTEND Student in an Organized Health Care Education/Training Program
DX: N31.9 Neuromuscular dysfunction of bladder, unspecified (principal); U07.1 COVID-19; N17.9 Acute kidney failure, unspecified; E10.649 Type 1 diabetes mellitus with hypoglycemia without coma; E87.0 Hyperosmolality and hypernatremia; B95.0 Streptococcus, group A, as the cause of diseases classified elsewhere; E10.22 Type 1 diabetes mellitus with diabetic chronic kidney disease; N10 Acute pyelonephritis; B95.2 Enterococcus as the cause of diseases classified elsewhere; D64.9 Anemia, unspecified; N32.81 Overactive bladder; N32.0 Bladder-neck obstruction; F32.A Depression, unspecified; J30.9 Allergic rhinitis, unspecified; J06.9 Acute upper respiratory infection, unspecified; E86.0 Dehydration; Z96.41 Presence of insulin pump (external) (internal); J02.9 Acute pharyngitis, unspecified; N18.9 Chronic kidney disease, unspecified; E87.6 Hypokalemia; E87.5 Hyperkalemia; F41.1 Generalized anxiety disorder; G40.909 Epilepsy, unspecified, not intractable, without status epilepticus; I12.9 Hypertensive chronic kidney disease with stage 1 through stage 4 chronic kidney disease, or unspecified chronic kidney disease; N39.490 Overflow incontinence; Z91.199 Patient's noncompliance with other medical treatment and regimen due to unspecified reason; Z83.3 Family history of diabetes mellitus; Z82.49 Family history of ischemic heart disease and other diseases of the circulatory system
CPT/HCPCS: 36415; 71045; 74176; 76775; 80053; 81001; 81025; 82962; 83735; 84100; 85025; 87086; 87088; 87186; 87426; 87804; 87880; 93005; 96374; 96375; 96376; G0378; J0696; J1815; J2405